=== PATIENT | female | born 1950 | race African-American/Black ===

== ENCOUNTER → 2016-11-12 | Outpatient (CLI) | payer OTHER ==
[2016-11-12 09:19] LABS: Basophils # (auto) 0.1 uL; Basophils % (auto) 0.5 % (0.0-2.0); Eosinophils # (auto) 0.1 uL; Eosinophils % (auto) 1.1 % (0.0-7.0); Hematocrit 41.5 % (36.0-46.0); Hemoglobin 13.6 g/dL (12.2-16.2); Lymphocytes # (auto) 3.5 uL; Lymphocytes % (auto) 30.3 % (10.0-50.0); Mean Corpuscular Hemoglobin 32.3 pg (28.0-32.0); Mean Corpuscular Hgb Conc. 32.6 g/dL (32.0-36.0); Mean Platelet Volume 7.3 fL (7.4-10.4); Monocytes # (auto) 0.6 uL; Monocytes % (auto) 5.2 % (0.0-12.0); Neutrophils # (auto) 7.2 uL; Neutrophils % (auto) 62.9 % (37.0-80.0); Platelet Count (auto) 447 10^3/uL (140-450); Red Cell Distribution Width 14.2 % (11.6-16.0); White Blood Cell 11.4 10^3/uL (4.4-10.8)
[2016-11-12 12:44] LABS: Albumin 3.7 g/dL (3.4-5.0); BUN/Creatinine Ratio 23.5; Bilirubin, Total 0.5 mg/dL (0.2-1.0); Calcium 9.4 mg/dL (8.5-10.1); Total Protein 7.9 g/dL (6.4-8.2)
== END | disposition home or self-care (01) ==
LOC: LAB 08:53
PROVIDERS: ATTEND Internal Medicine
DX: Z00.00 Encounter for general adult medical examination without abnormal findings (principal); I10 Essential (primary) hypertension; E78.2 Mixed hyperlipidemia; E55.9 Vitamin D deficiency, unspecified; E11.9 Type 2 diabetes mellitus without complications
CPT/HCPCS: 36415; 80053; 80061; 82306; 83036; 84443; 85025

== ENCOUNTER → 2017-05-07 | Outpatient (CLI) | payer OTHER | END | disposition home or self-care (01) | LOC: LAB 09:01 | DX: I10 Essential (primary) hypertension (principal); M06.9 Rheumatoid arthritis, unspecified; I70.0 Atherosclerosis of aorta; E78.00 Pure hypercholesterolemia, unspecified; D64.9 Anemia, unspecified; Z79.899 Other long term (current) drug therapy | CPT/HCPCS: 36415; 85652; 86141; 86200; 86431 ==

== ENCOUNTER → 2017-09-16 | Outpatient (CLI) | payer OTHER ==
[2017-09-16 08:39] LABS: Basophils # (auto) 0.1 uL; Basophils % (auto) 1.1 % (0.0-2.0); Eosinophils # (auto) 0.3 uL; Eosinophils % (auto) 2.4 % (0.0-7.0); Hematocrit 42.4 % (36.0-46.0); Hemoglobin 14.1 g/dL (12.2-16.2); Lymphocytes # (auto) 4.5 uL; Lymphocytes % (auto) 39.8 % (10.0-50.0); Mean Corpuscular Hemoglobin 32.1 pg (28.0-32.0); Mean Corpuscular Hgb Conc. 33.2 g/dL (32.0-36.0); Mean Corpuscular Volume 96.7 fL (80.0-100.0); Monocytes # (auto) 0.8 uL; Monocytes % (auto) 6.8 % (0.0-12.0); Neutrophils # (auto) 5.7 uL; Neutrophils % (auto) 49.9 % (37.0-80.0); Nucleated Red Blood Cells % 0.2 %; Platelet Count (auto) 372 10^3/uL (140-450); Red Blood Cells 4.38 10^6/uL (4.0-5.20); Red Cell Distribution Width 12.7 % (11.8-14.3); White Blood Cell 11.3 10^3/uL (4.4-10.8)
[2017-09-16 09:02] LABS: Albumin 3.7 g/dL (3.4-5.0); Bilirubin, Total 0.5 mg/dL (0.2-1.0); Calcium 8.9 mg/dL (8.5-10.1); Potassium 3.8 mmol/L (3.5-5.1); Total Protein 7.9 g/dL (6.4-8.2)
== END | disposition home or self-care (01) ==
LOC: LAB 08:20
PROVIDERS: ATTEND Physician Assistant
DX: E11.8 Type 2 diabetes mellitus with unspecified complications (principal); E78.5 Hyperlipidemia, unspecified; E03.9 Hypothyroidism, unspecified; Z86.19 Personal history of other infectious and parasitic diseases
CPT/HCPCS: 36415; 80053; 80061; 83036; 84443; 85025; 87522

== ENCOUNTER → 2017-12-30 | Outpatient (CLI) | payer OTHER | END | disposition home or self-care (01) | LOC: LAB 08:07 | PROVIDERS: ATTEND Physician Assistant | DX: Z12.11 Encounter for screening for malignant neoplasm of colon (principal); E78.5 Hyperlipidemia, unspecified; E03.9 Hypothyroidism, unspecified; E11.9 Type 2 diabetes mellitus without complications; I10 Essential (primary) hypertension; M06.9 Rheumatoid arthritis, unspecified; J44.9 Chronic obstructive pulmonary disease, unspecified | CPT/HCPCS: 82270 ==

== ENCOUNTER → 2019-08-21 | Outpatient (CLI) | payer OTHER ==
[2019-08-21 08:59] LABS: Urine WBC None Seen /hpf (0 - 5)
[2019-08-21 09:02] LABS: Hematocrit 38.7 % (36.0-46.0); Hemoglobin 13.2 g/dL (12.2-16.2); Mean Corpuscular Hgb Conc. 34.2 g/dL (32.0-36.0); Mean Corpuscular Volume 96.3 fL (80.0-100.0); Platelet Count (auto) 423 10^3/uL (140-450); Red Blood Cells 4.02 10^6/uL (4.0-5.20); Red Cell Distribution Width 12.7 % (11.8-14.3); White Blood Cell 11.5 10^3/uL (4.4-10.8)
[2019-08-21 09:05] LABS: Band Neutrophils % (manual) 0; Basophils % (manual) 0 (0.0-2.0); Blast Cells 0; Eosinophils % (manual) 0 (0-7); Metamyelocytes % 0; Myelocytes % 0; Promyelocytes % 0; Reactive Lymphocytes 0
[2019-08-21 09:08] LABS: Urine Bacteria NONE SEEN /hpf (None Seen); Urine Blood Negative /uL (Negative); Urine Specific Gravity 1.027 (1.001-1.035)
[2019-08-21 09:19] LABS: Lymphocytes % (manual) 48 (10.0-50.0); Monocytes % (manual) 3 (0-12)
[2019-08-21 09:31] LABS: Albumin 3.7 g/dL (3.4-5.0); Calcium 9.4 mg/dL (8.5-10.1); Potassium 4.3 mmol/L (3.5-5.1)
[2019-08-21 09:40] LABS: BUN/Creatinine Ratio 30.1; Bilirubin, Total 0.4 mg/dL (0.2-1.0)
== END | disposition home or self-care (01) ==
LOC: LAB 08:44
PROVIDERS: ATTEND Physician Assistant
DX: E11.22 Type 2 diabetes mellitus with diabetic chronic kidney disease (principal); I12.9 Hypertensive chronic kidney disease with stage 1 through stage 4 chronic kidney disease, or unspecified chronic kidney disease; N18.3 Chronic kidney disease, stage 3 (moderate); E03.9 Hypothyroidism, unspecified; J44.9 Chronic obstructive pulmonary disease, unspecified
CPT/HCPCS: 36415; 80053; 80061; 81001; 83036; 84443; 85007; 85027

== ENCOUNTER 2020-07-17 08:29 | Inpatient (IN) | payer OTHER, MEDICAID ==
[~2020-07-17] VITALS: Ht 160 cm; Wt 95.1 kg
[~2020-07-17 08:29] MED LIST: AMLO-496 PO; ATOR40TA52 PO; BENA40TA8 PO; CANA300T PO; HYDR25TA5 PO; IPRIH INH; LEVO125T7 PO; METF-929 PO; OMEP-260 PO
[2020-07-17 09:13] LABS: Basophils # (auto) 0.1 10 ^3/uL (0-0.2); Eosinophils # (auto) 0 10 ^3/uL (0-0.8); Eosinophils % (auto) 0.1 % (0.0-7.0); Monocytes % (auto) 6.5 % (0.0-12.0)
[2020-07-17 09:15] LABS: Basophils % (auto) 0.4 % (0.0-2.0); Hematocrit 28.7 % (36.0-46.0); Hemoglobin 8.9 g/dL (12.2-16.2); Lymphocytes # (auto) 1.6 10 ^3/uL (0.4-5.4); Lymphocytes % (auto) 9.9 % (10.0-50.0); Mean Corpuscular Hemoglobin 25.4 pg (28.0-32.0); Mean Corpuscular Hgb Conc. 30.9 g/dL (32.0-36.0); Neutrophils # (auto) 13.2 10 ^3/uL (1.6-8.6); Neutrophils % (auto) 83.1 % (37.0-80.0); Platelet Count (auto) 372 10^3/uL (140-450); Red Blood Cells 3.49 10^6/uL (4.0-5.20); White Blood Cell 15.9 10^3/uL (4.4-10.8)
[2020-07-17 09:19] LABS: Red Cell Distribution Width 23.3 % (11.8-14.3)
[2020-07-17 09:27] LABS: Alanine Aminotransferase 13 U/L (13-56); Albumin 2.1 g/dL (3.4-5.0); Aspartate Aminotransferase 14 U/L (15-37); Blood Urea Nitrogen 52 mg/dL (7-18); Calcium 8.7 mg/dL (8.5-10.1); Carbon Dioxide 27 mmol/L (21-32); Glucose 367 mg/dL (74-106); Magnesium 1.9 mg/dL (1.6-2.6)
[2020-07-17 10:55] LABS: Alkaline Phosphatase 100 U/L (45-117); Bilirubin, Total 0.4 mg/dL (0.2-1.0); GFR African American 43 mL/min; GFR Non-African American 36 mL/min
[2020-07-17 11:03] LABS: Anion Gap 8 (5-15); Chloride 100 mmol/L (98-107); Potassium 4.1 mmol/L (3.5-5.1); Sodium 135 mmol/L (136-145)
[2020-07-17] MEDS ORDERED: MORPHINE SULF INJ 2 MG/ML SYRINGE 1ML IV PRN (14:00)
[2020-07-17] MEDS ORDERED: NITROGLYCERIN 0.4 MG SL TAB SL PRN (14:00)
[2020-07-17] MEDS ORDERED: ONDANSETRON HCL 4 MG/2 ML VIAL IV PRN (14:00)
[2020-07-17] MEDS ORDERED: AMIO200T33 PO (14:56)
[2020-07-17] MEDS ORDERED: SUCR1TAB22 PO (14:56)
[2020-07-17] MEDS ORDERED: MET25T PO (14:56)
[2020-07-17] MEDS ORDERED: DIGO0.12 PO (14:56)
[2020-07-17] MEDS ORDERED: PANT40T PO (14:56)
[2020-07-17] MEDS: PIPERACILLIN-TAZOB 3.375GM 100 ML IV SCH (18:19)
[2020-07-17] MEDS: LINEZOLID 600MG/300ML 300 ML IV SCH (21:43)
[2020-07-17] MEDS: ATORVASTATIN 20 MG TAB PO SCH (21:44)
[2020-07-17] MEDS: methylPREDNISolone SOD SUCC 40 MG/ML VL IV SCH (21:44)
[2020-07-17] MEDS: DOCUSATE SOD 100 MG CAP PO SCH (21:49)
[2020-07-17] MEDS: BUDESONIDE (INHALATION) 0.5 MG/2 ML NEB NEB SCH (22:00)
[2020-07-18 04:00] VITALS: BP 147/81
[2020-07-18] MEDS: PIPERACILLIN-TAZOB 3.375GM 100 ML IV SCH ×3 (06:00→17:18)
[2020-07-18 08:00] VITALS: BP 143/85
[2020-07-18 08:50] LABS: Basophils # (auto) 0.1 10 ^3/uL (0-0.2); Eosinophils # (auto) 0 10 ^3/uL (0-0.8); Hemoglobin 9.9 g/dL (12.2-16.2); Monocytes # (auto) 0.2 10 ^3/uL (0-1.3); Monocytes % (auto) 1.6 % (0.0-12.0)
[2020-07-18 08:52] LABS: Hematocrit 30.9 % (36.0-46.0); Lymphocytes # (auto) 0.7 10 ^3/uL (0.4-5.4); Lymphocytes % (auto) 7.3 % (10.0-50.0); Mean Corpuscular Hemoglobin 25.9 pg (28.0-32.0); Mean Corpuscular Volume 80.8 fL (80.0-100.0); Neutrophils # (auto) 9.2 10 ^3/uL (1.6-8.6); Neutrophils % (auto) 90.1 % (37.0-80.0); Platelet Count (auto) 406 10^3/uL (140-450); Red Blood Cells 3.83 10^6/uL (4.0-5.20); Red Cell Distribution Width 24.1 % (11.8-14.3); White Blood Cell 10.2 10^3/uL (4.4-10.8)
[2020-07-18] MEDS ORDERED: cefTRIAXone 1GM/50ML D5W 50 ML IV SCH (09:00)
[2020-07-18 09:08] LABS: BUN/Creatinine Ratio 28.5; Calcium 8.6 mg/dL (8.5-10.1); Potassium 4.5 mmol/L (3.5-5.1)
[2020-07-18] MEDS: methylPREDNISolone SOD SUCC 40 MG/ML VL IV SCH (09:36)
[2020-07-18] MEDS: FAMOTIDINE 20 MG TAB PO SCH (09:36)
[2020-07-18] MEDS: DOCUSATE SOD 100 MG CAP PO SCH ×2 (09:37→22:23)
[2020-07-18] MEDS: amLODIPine BESYLATE 5 MG TAB PO SCH (09:37)
[2020-07-18] MEDS: LINEZOLID 600MG/300ML 300 ML IV SCH ×2 (09:38→22:23)
[2020-07-18] MEDS: AMIODARONE HCL 200 MG TAB PO SCH (09:38)
[2020-07-18] MEDS: ENOXAPARIN SOD 40 MG/0.4 ML SYRINGE SC SCH (09:38)
[2020-07-18] MEDS ORDERED: FUROSEMIDE 20 MG/2 ML VIAL IV SCH (10:00)
[2020-07-18] MEDS ORDERED: AZITHROMYCIN 500MG/ 250ML 250 ML IV SCH (10:00)
[2020-07-18] MEDS ORDERED: FUROSEMIDE 20 MG/2 ML VIAL IV ONE (10:15)
[2020-07-18] MEDS ORDERED: INSULIN LISPRO (HUMAN) 100 UNITS/ML ML SC ONE ×3 (10:15→16:15)
[2020-07-18] MEDS: BUDESONIDE (INHALATION) 0.5 MG/2 ML NEB NEB SCH ×2 (11:07→23:09)
[2020-07-18 12:00] VITALS: BP 131/80
[2020-07-18] MEDS: ALBUMIN 25% 100 ML IV SCH ×2 (13:23→13:45)
[2020-07-18 15:16] LABS: BUN/Creatinine Ratio 29.3; Calcium 8.6 mg/dL (8.5-10.1); Potassium 4.4 mmol/L (3.5-5.1)
[2020-07-18 16:00] VITALS: BP 121/80
[2020-07-18] MEDS ORDERED: SODIUM CHLORIDE 0.9% 500 ML IV ONE (16:15)
[2020-07-18] MEDS ORDERED: SODIUM CHLORIDE 0.9% 1,000 ML IV SCH (16:15)
[2020-07-18] MEDS: FUROSEMIDE 40 MG/4 ML VIAL IV SCH (17:17)
[2020-07-18] MEDS: ACCU-CHEK COMFORT CURVE STRIP VI SCH (22:23)
[2020-07-18] MEDS: ATORVASTATIN 20 MG TAB PO SCH (22:23)
[2020-07-18] MEDS: InsuLIN REG 1unit/0.01ml Soln (100units/ml) SC SCH (22:24)
[2020-07-18] MEDS: INSULIN LANTUS (GLARGINE) 1 /0.01ml (100units/ml) SC SCH (22:24)
[2020-07-19] VITALS: BP 126/71
[2020-07-19] MEDS: PIPERACILLIN-TAZOB 3.375GM 100 ML IV SCH ×4 (00:35→18:30)
[2020-07-19] MEDS: BUDESONIDE (INHALATION) 0.5 MG/2 ML NEB NEB SCH ×2 (06:11→18:54)
[2020-07-19] MEDS: FUROSEMIDE 40 MG/4 ML VIAL IV SCH ×2 (06:29→18:29)
[2020-07-19] MEDS: LEVOTHYROXINE SODIUM 25 MCG TAB PO SCH (06:30)
[2020-07-19] MEDS: LEVOTHYROXINE SODIUM 112 MCG TAB PO SCH (06:30)
[2020-07-19] MEDS: ACCU-CHEK COMFORT CURVE STRIP VI SCH ×4 (06:30→21:53)
[2020-07-19] MEDS: InsuLIN REG 1unit/0.01ml Soln (100units/ml) SC SCH ×4 (06:31→22:13)
[2020-07-19 07:48] LABS: Potassium 3.7 mmol/L (3.5-5.1)
[2020-07-19 07:53] LABS: BUN/Creatinine Ratio 32.4; Calcium 8.3 mg/dL (8.5-10.1); Magnesium 1.6 mg/dL (1.6-2.6)
[2020-07-19 08:00] VITALS: BP 136/95
[2020-07-19] MEDS: DOCUSATE SOD 100 MG CAP PO SCH ×2 (09:32→22:14)
[2020-07-19] MEDS: amLODIPine BESYLATE 5 MG TAB PO SCH (09:33)
[2020-07-19] MEDS: AMIODARONE HCL 200 MG TAB PO SCH (09:33)
[2020-07-19] MEDS: FAMOTIDINE 20 MG TAB PO SCH (09:34)
[2020-07-19] MEDS: ENOXAPARIN SOD 40 MG/0.4 ML SYRINGE SC SCH (09:34)
[2020-07-19] MEDS: LINEZOLID 600MG/300ML 300 ML IV SCH ×2 (09:35→22:14)
[2020-07-19] MEDS ORDERED: MAGNESIUM OXIDE 400 MG TAB PO ONE (10:00)
[2020-07-19 16:00] VITALS: BP 123/63
[2020-07-19] MEDS: INSULIN LANTUS (GLARGINE) 1 /0.01ml (100units/ml) SC SCH (22:13)
[2020-07-19] MEDS: HYDROcodone-ACET 5/325MG TAB PO PRN (22:14)
[2020-07-19] MEDS: ATORVASTATIN 20 MG TAB PO SCH (22:14)
[2020-07-20] MEDS: PIPERACILLIN-TAZOB 3.375GM 100 ML IV SCH ×4 (00:07→12:54)
[2020-07-20 05:51] VITALS: BP 133/72
[2020-07-20] MEDS: FUROSEMIDE 40 MG/4 ML VIAL IV SCH ×2 (06:50→18:30)
[2020-07-20] MEDS: LEVOTHYROXINE SODIUM 112 MCG TAB PO SCH (07:00)
[2020-07-20] MEDS: InsuLIN REG 1unit/0.01ml Soln (100units/ml) SC SCH ×4 (07:00→22:00)
[2020-07-20] MEDS: ACCU-CHEK COMFORT CURVE STRIP VI SCH ×4 (07:00→22:00)
[2020-07-20] MEDS: LEVOTHYROXINE SODIUM 25 MCG TAB PO SCH (07:00)
[2020-07-20 08:00] VITALS: BP 133/86
[2020-07-20] MEDS: DOCUSATE SOD 100 MG CAP PO SCH ×2 (10:32→22:00)
[2020-07-20] MEDS: amLODIPine BESYLATE 5 MG TAB PO SCH (10:32)
[2020-07-20] MEDS: AMIODARONE HCL 200 MG TAB PO SCH (10:32)
[2020-07-20] MEDS: LINEZOLID 600MG/300ML 300 ML IV SCH ×2 (10:33→22:00)
[2020-07-20] MEDS: ENOXAPARIN SOD 40 MG/0.4 ML SYRINGE SC SCH (10:33)
[2020-07-20] MEDS: FAMOTIDINE 20 MG TAB PO SCH (10:33)
[2020-07-20] MEDS: BUDESONIDE (INHALATION) 0.5 MG/2 ML NEB NEB SCH ×2 (10:50→22:00)
[2020-07-20 16:00] VITALS: BP 124/58
[2020-07-20 22:00] VITALS: BP 142/85
[2020-07-20] MEDS: ATORVASTATIN 20 MG TAB PO SCH (22:00)
[2020-07-20] MEDS: INSULIN LANTUS (GLARGINE) 1 /0.01ml (100units/ml) SC SCH (22:00)
[2020-07-21 05:00] VITALS: BP 134/67
[2020-07-21] MEDS: BUDESONIDE (INHALATION) 0.5 MG/2 ML NEB NEB SCH ×2 (06:40→21:49)
[2020-07-21] MEDS: PIPERACILLIN-TAZOB 3.375GM 100 ML IV SCH ×4 (06:49→18:02)
[2020-07-21] MEDS: LEVOTHYROXINE SODIUM 25 MCG TAB PO SCH (06:50)
[2020-07-21] MEDS: LEVOTHYROXINE SODIUM 112 MCG TAB PO SCH (06:50)
[2020-07-21] MEDS: FUROSEMIDE 40 MG/4 ML VIAL IV SCH ×2 (06:50→18:02)
[2020-07-21] MEDS: ACCU-CHEK COMFORT CURVE STRIP VI SCH ×4 (07:08→21:46)
[2020-07-21] MEDS: InsuLIN REG 1unit/0.01ml Soln (100units/ml) SC SCH ×4 (07:19→21:45)
[2020-07-21 08:00] VITALS: BP 133/79
[2020-07-21] MEDS: DOCUSATE SOD 100 MG CAP PO SCH ×2 (09:31→21:45)
[2020-07-21] MEDS: LINEZOLID 600MG/300ML 300 ML IV SCH (09:31)
[2020-07-21] MEDS: AMIODARONE HCL 200 MG TAB PO SCH (09:32)
[2020-07-21] MEDS: amLODIPine BESYLATE 5 MG TAB PO SCH (09:32)
[2020-07-21] MEDS: ENOXAPARIN SOD 40 MG/0.4 ML SYRINGE SC SCH (09:33)
[2020-07-21] MEDS: FAMOTIDINE 20 MG TAB PO SCH (09:33)
[2020-07-21 16:00] VITALS: BP 156/95
[2020-07-21] MEDS: ATORVASTATIN 20 MG TAB PO SCH (21:45)
[2020-07-21] MEDS: INSULIN LANTUS (GLARGINE) 1 /0.01ml (100units/ml) SC SCH (21:46)
[2020-07-21 22:00] VITALS: BP 141/72
[2020-07-22 05:00] VITALS: BP 147/71
[2020-07-22] MEDS: LEVOTHYROXINE SODIUM 25 MCG TAB PO SCH (05:50)
[2020-07-22] MEDS: ACCU-CHEK COMFORT CURVE STRIP VI SCH ×4 (05:50→21:51)
[2020-07-22] MEDS: InsuLIN REG 1unit/0.01ml Soln (100units/ml) SC SCH ×4 (05:50→21:52)
[2020-07-22] MEDS: LEVOTHYROXINE SODIUM 112 MCG TAB PO SCH (05:51)
[2020-07-22] MEDS: HYDROcodone-ACET 5/325MG TAB PO PRN (05:51)
[2020-07-22 09:00] VITALS: BP 120/72
[2020-07-22] MEDS: DOCUSATE SOD 100 MG CAP PO SCH ×2 (10:00→21:51)
[2020-07-22] MEDS: FAMOTIDINE 20 MG TAB PO SCH (10:26)
[2020-07-22] MEDS: amLODIPine BESYLATE 5 MG TAB PO SCH (10:26)
[2020-07-22] MEDS: AMIODARONE HCL 200 MG TAB PO SCH (10:26)
[2020-07-22] MEDS: ENOXAPARIN SOD 40 MG/0.4 ML SYRINGE SC SCH (10:27)
[2020-07-22 10:41] LABS: BUN/Creatinine Ratio 24.5; Calcium 8.5 mg/dL (8.5-10.1); Magnesium 1.7 mg/dL (1.6-2.6); Potassium 3.2 mmol/L (3.5-5.1)
[2020-07-22] MEDS ORDERED: POTASSIUM CHL 20 Meq TABLET PO ONE ×2 (11:45)
[2020-07-22 12:00] VITALS: BP 128/67
[2020-07-22] MEDS: BUDESONIDE (INHALATION) 0.5 MG/2 ML NEB NEB SCH ×2 (13:50→19:53)
[2020-07-22 17:00] VITALS: BP 141/74
[2020-07-22 18:21] VITALS: BP 139/76
[2020-07-22] MEDS: ATORVASTATIN 20 MG TAB PO SCH (21:51)
[2020-07-22] MEDS: INSULIN LANTUS (GLARGINE) 1 /0.01ml (100units/ml) SC SCH (21:52)
[2020-07-22 22:23] VITALS: BP 131/73
[2020-07-23] MEDS: HYDROcodone-ACET 5/325MG TAB PO PRN ×2 (01:02→21:50)
[2020-07-23 05:18] VITALS: BP 130/83
[2020-07-23] MEDS: LEVOTHYROXINE SODIUM 112 MCG TAB PO SCH (06:23)
[2020-07-23] MEDS: LEVOTHYROXINE SODIUM 25 MCG TAB PO SCH (06:24)
[2020-07-23] MEDS: ACCU-CHEK COMFORT CURVE STRIP VI SCH ×4 (06:24→21:50)
[2020-07-23] MEDS: InsuLIN REG 1unit/0.01ml Soln (100units/ml) SC SCH ×4 (06:24→22:00)
[2020-07-23 06:45] LABS: Urine Bacteria NONE SEEN /hpf (None Seen); Urine Blood 3+ /uL (Negative); Urine Budding Yeast OCCASIONAL /hpf (None Seen); Urine Specific Gravity 1.019 (1.001-1.035); Urine WBC 449 /hpf (0 - 5)
[2020-07-23 07:54] LABS: Eosinophils # (auto) 0.1 10 ^3/uL (0-0.8); Eosinophils % (auto) 0.4 % (0.0-7.0); Hemoglobin 8.1 g/dL (12.2-16.2); Monocytes # (auto) 0.7 10 ^3/uL (0-1.3); Nucleated Red Blood Cells % 0.1 %; White Blood Cell 14.6 10^3/uL (4.4-10.8)
[2020-07-23 08:00] VITALS: BP 136/71
[2020-07-23 08:01] LABS: Basophils # (auto) 0.2 10 ^3/uL (0-0.2); Basophils % (auto) 1.1 % (0.0-2.0); Hematocrit 25.8 % (36.0-46.0); Lymphocytes # (auto) 2.3 10 ^3/uL (0.4-5.4); Lymphocytes % (auto) 16.1 % (10.0-50.0); Mean Corpuscular Hemoglobin 25.4 pg (28.0-32.0); Mean Corpuscular Hgb Conc. 31.4 g/dL (32.0-36.0); Mean Corpuscular Volume 80.9 fL (80.0-100.0); Monocytes % (auto) 5.1 % (0.0-12.0); Neutrophils # (auto) 11.3 10 ^3/uL (1.6-8.6); Neutrophils % (auto) 77.3 % (37.0-80.0); Platelet Count (auto) 305 10^3/uL (140-450); Red Blood Cells 3.18 10^6/uL (4.0-5.20)
[2020-07-23] MEDS ORDERED: CEFTRIAXONE SODIUM 2 GM in D5W 5% 50 ML IV ONE (08:15)
[2020-07-23 08:37] LABS: Red Cell Distribution Width 23.8 % (11.8-14.3)
[2020-07-23] MEDS: AMIODARONE HCL 200 MG TAB PO SCH (08:58)
[2020-07-23] MEDS: DOCUSATE SOD 100 MG CAP PO SCH ×2 (08:58→21:50)
[2020-07-23] MEDS ORDERED: FUROSEMIDE 40 MG/4 ML VIAL IV ONE (09:00)
[2020-07-23] MEDS: FAMOTIDINE 20 MG TAB PO SCH (09:01)
[2020-07-23] MEDS: amLODIPine BESYLATE 5 MG TAB PO SCH (09:01)
[2020-07-23] MEDS: BUDESONIDE (INHALATION) 0.5 MG/2 ML NEB NEB SCH ×2 (13:07→19:29)
[2020-07-23 16:56] VITALS: BP 139/67
[2020-07-23 18:20] LABS: Hemoglobin 7.8 g/dL (12.2-16.2)
[2020-07-23 18:22] LABS: Hematocrit 24.5 % (36.0-46.0)
[2020-07-23] MEDS: ATORVASTATIN 20 MG TAB PO SCH (21:50)
[2020-07-23 22:00] VITALS: BP 138/83
[2020-07-23] MEDS: INSULIN LANTUS (GLARGINE) 1 /0.01ml (100units/ml) SC SCH (22:00)
[2020-07-24 05:00] VITALS: BP 141/74
[2020-07-24] MEDS: LEVOTHYROXINE SODIUM 112 MCG TAB PO SCH (05:34)
[2020-07-24] MEDS: ACCU-CHEK COMFORT CURVE STRIP VI SCH ×4 (05:35→22:00)
[2020-07-24] MEDS: InsuLIN REG 1unit/0.01ml Soln (100units/ml) SC SCH ×4 (05:35→22:00)
[2020-07-24] MEDS: LEVOTHYROXINE SODIUM 25 MCG TAB PO SCH (05:35)
[2020-07-24 06:15] LABS: Eosinophils # (auto) 0.1 10 ^3/uL (0-0.8); Hematocrit 21.9 % (36.0-46.0); Mean Corpuscular Volume 80.8 fL (80.0-100.0); Monocytes # (auto) 0.8 10 ^3/uL (0-1.3); Red Blood Cells 2.71 10^6/uL (4.0-5.20); White Blood Cell 12.3 10^3/uL (4.4-10.8)
[2020-07-24 06:17] LABS: Basophils # (auto) 0.1 10 ^3/uL (0-0.2); Basophils % (auto) 0.6 % (0.0-2.0); Eosinophils % (auto) 0.9 % (0.0-7.0); Lymphocytes # (auto) 1.8 10 ^3/uL (0.4-5.4); Lymphocytes % (auto) 14.7 % (10.0-50.0); Mean Corpuscular Hemoglobin 25.9 pg (28.0-32.0); Mean Corpuscular Hgb Conc. 32.1 g/dL (32.0-36.0); Monocytes % (auto) 6.1 % (0.0-12.0); Neutrophils # (auto) 9.6 10 ^3/uL (1.6-8.6); Neutrophils % (auto) 77.7 % (37.0-80.0); Platelet Count (auto) 278 10^3/uL (140-450)
[2020-07-24 06:29] LABS: Hemoglobin 7.1 g/dL (12.2-16.2); Red Cell Distribution Width 23.6 % (11.8-14.3)
[2020-07-24 06:36] LABS: Potassium 3.9 mmol/L (3.5-5.1)
[2020-07-24 06:50] LABS: BUN/Creatinine Ratio 23.1; Calcium 8.2 mg/dL (8.5-10.1)
[2020-07-24 08:00] VITALS: BP 136/80
[2020-07-24] MEDS: DOCUSATE SOD 100 MG CAP PO SCH ×2 (10:39→22:48)
[2020-07-24] MEDS: amLODIPine BESYLATE 5 MG TAB PO SCH (10:40)
[2020-07-24] MEDS: FAMOTIDINE 20 MG TAB PO SCH (10:40)
[2020-07-24] MEDS: AMIODARONE HCL 200 MG TAB PO SCH (10:40)
[2020-07-24] MEDS: BUDESONIDE (INHALATION) 0.5 MG/2 ML NEB NEB SCH ×2 (11:08→19:54)
[2020-07-24 22:00] VITALS: BP 130/73
[2020-07-24] MEDS: INSULIN LANTUS (GLARGINE) 1 /0.01ml (100units/ml) SC SCH (22:00)
[2020-07-24] MEDS: ATORVASTATIN 20 MG TAB PO SCH (22:48)
[2020-07-25] MEDS ORDERED: dilTIAZem 25 MG/5 ML VIAL IV ONE (00:45)
[2020-07-25 05:00] VITALS: BP 159/79
[2020-07-25 06:05] LABS: Eosinophils # (auto) 0.1 10 ^3/uL (0-0.8); Hemoglobin 7.2 g/dL (12.2-16.2); Monocytes # (auto) 0.9 10 ^3/uL (0-1.3); White Blood Cell 10.6 10^3/uL (4.4-10.8)
[2020-07-25 06:09] LABS: Basophils # (auto) 0.1 10 ^3/uL (0-0.2); Basophils % (auto) 0.7 % (0.0-2.0); Eosinophils % (auto) 0.6 % (0.0-7.0); Lymphocytes # (auto) 1.5 10 ^3/uL (0.4-5.4); Lymphocytes % (auto) 13.9 % (10.0-50.0); Mean Corpuscular Hemoglobin 26.1 pg (28.0-32.0); Mean Corpuscular Hgb Conc. 32.7 g/dL (32.0-36.0); Mean Corpuscular Volume 79.9 fL (80.0-100.0); Monocytes % (auto) 8.1 % (0.0-12.0); Neutrophils # (auto) 8.1 10 ^3/uL (1.6-8.6); Neutrophils % (auto) 76.7 % (37.0-80.0); Platelet Count (auto) 303 10^3/uL (140-450); Red Blood Cells 2.76 10^6/uL (4.0-5.20)
[2020-07-25 06:24] LABS: INR 1.24 (0.9-1.15); Partial Thromboplastin Time 31.3 sec (23.0-31.2)
[2020-07-25] MEDS: InsuLIN REG 1unit/0.01ml Soln (100units/ml) SC SCH ×4 (06:31→21:57)
[2020-07-25] MEDS: LEVOTHYROXINE SODIUM 25 MCG TAB PO SCH (06:31)
[2020-07-25 06:35] LABS: Potassium 3.8 mmol/L (3.5-5.1)
[2020-07-25] MEDS: LEVOTHYROXINE SODIUM 112 MCG TAB PO SCH (06:40)
[2020-07-25] MEDS: ACCU-CHEK COMFORT CURVE STRIP VI SCH ×4 (06:40→21:57)
[2020-07-25] MEDS: BUDESONIDE (INHALATION) 0.5 MG/2 ML NEB NEB SCH ×2 (06:51→18:27)
[2020-07-25 07:04] LABS: Red Cell Distribution Width 23.8 % (11.8-14.3)
[2020-07-25 07:13] LABS: Albumin 1.9 g/dL (3.4-5.0); BUN/Creatinine Ratio 20.4; Bilirubin, Total 0.5 mg/dL (0.2-1.0); Calcium 8.2 mg/dL (8.5-10.1); Magnesium 1.9 mg/dL (1.6-2.6); Total Protein 6.8 g/dL (6.4-8.2)
[2020-07-25 08:00] VITALS: BP_SYST 114; BP_SYST 162; BP_DIAS 65; BP_DIAS 82
[2020-07-25] MEDS: DOCUSATE SOD 100 MG CAP PO SCH ×2 (10:22→21:55)
[2020-07-25] MEDS: amLODIPine BESYLATE 5 MG TAB PO SCH (10:23)
[2020-07-25] MEDS: HYDROcodone-ACET 5/325MG TAB PO PRN (10:23)
[2020-07-25] MEDS: AMIODARONE HCL 200 MG TAB PO SCH (10:23)
[2020-07-25] MEDS: FAMOTIDINE 20 MG TAB PO SCH (10:23)
[2020-07-25] MEDS ORDERED: FUROSEMIDE 40 MG/4 ML VIAL IV ONE (11:15)
[2020-07-25] MEDS ORDERED: AZITHROMYCIN 250 MG TAB PO ONE (12:45)
[2020-07-25 14:54] VITALS: BP 120/66
[2020-07-25 15:11] VITALS: BP 118/58
[2020-07-25] MEDS: FUROSEMIDE 40 MG/4 ML VIAL IV SCH (18:00)
[2020-07-25 18:48] VITALS: BP 111/73
[2020-07-25] MEDS: ATORVASTATIN 20 MG TAB PO SCH (21:55)
[2020-07-25] MEDS: INSULIN LANTUS (GLARGINE) 1 /0.01ml (100units/ml) SC SCH (21:57)
[2020-07-25 23:38] VITALS: BP 148/50
[2020-07-26] MEDS: HYDROcodone-ACET 5/325MG TAB PO PRN (01:37)
[2020-07-26 06:07] VITALS: BP 131/70
[2020-07-26] MEDS: FUROSEMIDE 40 MG/4 ML VIAL IV SCH ×2 (06:30→17:29)
[2020-07-26] MEDS: InsuLIN REG 1unit/0.01ml Soln (100units/ml) SC SCH ×4 (06:30→22:00)
[2020-07-26] MEDS: LEVOTHYROXINE SODIUM 25 MCG TAB PO SCH (06:49)
[2020-07-26] MEDS: LEVOTHYROXINE SODIUM 112 MCG TAB PO SCH (06:49)
[2020-07-26] MEDS: ACCU-CHEK COMFORT CURVE STRIP VI SCH ×4 (06:51→23:06)
[2020-07-26 06:57] LABS: Hemoglobin 7.4 g/dL (12.2-16.2)
[2020-07-26 06:59] LABS: Hematocrit 21.6 % (36.0-46.0)
[2020-07-26 08:00] VITALS: BP 118/78
[2020-07-26] MEDS: BUDESONIDE (INHALATION) 0.5 MG/2 ML NEB NEB SCH ×2 (10:00→19:02)
[2020-07-26] MEDS: DOCUSATE SOD 100 MG CAP PO SCH ×2 (10:02→23:04)
[2020-07-26] MEDS: AMIODARONE HCL 200 MG TAB PO SCH (10:02)
[2020-07-26] MEDS: FAMOTIDINE 20 MG TAB PO SCH (10:02)
[2020-07-26] MEDS: amLODIPine BESYLATE 5 MG TAB PO SCH (10:03)
[2020-07-26] MEDS: AZITHROMYCIN 250 MG TAB PO SCH (10:03)
[2020-07-26 16:00] VITALS: BP 121/64
[2020-07-26] MEDS: ATORVASTATIN 20 MG TAB PO SCH (23:04)
[2020-07-26] MEDS: INSULIN LANTUS (GLARGINE) 1 /0.01ml (100units/ml) SC SCH (23:05)
[2020-07-27] VITALS: BP 103/73
[2020-07-27] MEDS: FUROSEMIDE 40 MG/4 ML VIAL IV SCH ×3 (06:00→18:00)
[2020-07-27] MEDS: BUDESONIDE (INHALATION) 0.5 MG/2 ML NEB NEB SCH ×2 (06:30→22:00)
[2020-07-27] MEDS: LEVOTHYROXINE SODIUM 112 MCG TAB PO SCH ×2 (06:43→06:52)
[2020-07-27] MEDS: LEVOTHYROXINE SODIUM 25 MCG TAB PO SCH ×2 (06:44→06:52)
[2020-07-27] MEDS: ACCU-CHEK COMFORT CURVE STRIP VI SCH ×4 (06:52→22:31)
[2020-07-27] MEDS: InsuLIN REG 1unit/0.01ml Soln (100units/ml) SC SCH ×4 (06:53→22:00)
[2020-07-27 08:00] VITALS: BP 119/77
[2020-07-27 08:26] LABS: Basophils # (auto) 0 10 ^3/uL (0-0.2); Eosinophils # (auto) 0 10 ^3/uL (0-0.8); Hemoglobin 7.4 g/dL (12.2-16.2); Lymphocytes # (auto) 0.9 10 ^3/uL (0.4-5.4); Monocytes # (auto) 0.9 10 ^3/uL (0-1.3)
[2020-07-27 08:28] LABS: Basophils % (auto) 0.4 % (0.0-2.0); Eosinophils % (auto) 0.2 % (0.0-7.0); Hematocrit 22.5 % (36.0-46.0); Lymphocytes % (auto) 12.4 % (10.0-50.0); Mean Corpuscular Hemoglobin 26.6 pg (28.0-32.0); Mean Corpuscular Hgb Conc. 32.7 g/dL (32.0-36.0); Mean Corpuscular Volume 81.5 fL (80.0-100.0); Monocytes % (auto) 11.7 % (0.0-12.0); Neutrophils # (auto) 5.7 10 ^3/uL (1.6-8.6); Neutrophils % (auto) 75.3 % (37.0-80.0); Nucleated Red Blood Cells % 0.1 %; Platelet Count (auto) 472 10^3/uL (140-450); Red Blood Cells 2.76 10^6/uL (4.0-5.20); White Blood Cell 7.5 10^3/uL (4.4-10.8)
[2020-07-27 09:08] LABS: Calcium 8.4 mg/dL (8.5-10.1); Potassium 3.7 mmol/L (3.5-5.1)
[2020-07-27 09:11] LABS: BUN/Creatinine Ratio 21.7
[2020-07-27] MEDS: AMIODARONE HCL 200 MG TAB PO SCH (10:03)
[2020-07-27] MEDS: DOCUSATE SOD 100 MG CAP PO SCH ×2 (10:03→22:00)
[2020-07-27] MEDS: AZITHROMYCIN 250 MG TAB PO SCH (10:05)
[2020-07-27] MEDS: amLODIPine BESYLATE 5 MG TAB PO SCH (10:05)
[2020-07-27] MEDS: FAMOTIDINE 20 MG TAB PO SCH (10:05)
[2020-07-27 16:00] VITALS: BP 119/81
[2020-07-27 21:56] VITALS: BP 116/70
[2020-07-27] MEDS: INSULIN LANTUS (GLARGINE) 1 /0.01ml (100units/ml) SC SCH (22:00)
[2020-07-27] MEDS: HYDROcodone-ACET 5/325MG TAB PO PRN ×2 (22:45→22:48)
[2020-07-27] MEDS: ACETAMINOPHEN 500 MG TAB PO PRN (22:46)
[2020-07-27] MEDS: ATORVASTATIN 20 MG TAB PO SCH (22:47)
[2020-07-28 05:30] VITALS: BP 133/58
[2020-07-28] MEDS: FUROSEMIDE 40 MG/4 ML VIAL IV SCH ×2 (06:00→18:00)
[2020-07-28] MEDS: LEVOTHYROXINE SODIUM 112 MCG TAB PO SCH (06:34)
[2020-07-28] MEDS: LEVOTHYROXINE SODIUM 25 MCG TAB PO SCH (06:35)
[2020-07-28] MEDS: InsuLIN REG 1unit/0.01ml Soln (100units/ml) SC SCH ×4 (06:43→22:00)
[2020-07-28] MEDS: ACCU-CHEK COMFORT CURVE STRIP VI SCH ×4 (06:44→22:00)
[2020-07-28 07:22] LABS: Eosinophils # (auto) 0 10 ^3/uL (0-0.8); Hematocrit 22.2 % (36.0-46.0); Lymphocytes % (auto) 20.5 % (10.0-50.0); Monocytes # (auto) 0.9 10 ^3/uL (0-1.3)
[2020-07-28 07:25] LABS: Basophils # (auto) 0.1 10 ^3/uL (0-0.2); Basophils % (auto) 0.8 % (0.0-2.0); Eosinophils % (auto) 0.5 % (0.0-7.0); Hemoglobin 7.2 g/dL (12.2-16.2); Lymphocytes # (auto) 1.4 10 ^3/uL (0.4-5.4); Mean Corpuscular Hemoglobin 26.7 pg (28.0-32.0); Mean Corpuscular Hgb Conc. 32.5 g/dL (32.0-36.0); Neutrophils # (auto) 4.4 10 ^3/uL (1.6-8.6); Neutrophils % (auto) 65.2 % (37.0-80.0); Platelet Count (auto) 522 10^3/uL (140-450); Red Blood Cells 2.71 10^6/uL (4.0-5.20); White Blood Cell 6.7 10^3/uL (4.4-10.8)
[2020-07-28 07:29] LABS: Red Cell Distribution Width 23.8 % (11.8-14.3)
[2020-07-28 07:34] LABS: BUN/Creatinine Ratio 23.3; Potassium 4.1 mmol/L (3.5-5.1)
[2020-07-28 08:00] VITALS: BP_SYST 100; BP_SYST 152; BP_DIAS 55; BP_DIAS 92
[2020-07-28] MEDS: DOCUSATE SOD 100 MG CAP PO SCH ×2 (08:10→22:00)
[2020-07-28] MEDS: AZITHROMYCIN 250 MG TAB PO SCH (09:43)
[2020-07-28] MEDS: FAMOTIDINE 20 MG TAB PO SCH (09:43)
[2020-07-28] MEDS: AMIODARONE HCL 200 MG TAB PO SCH (09:43)
[2020-07-28] MEDS: amLODIPine BESYLATE 5 MG TAB PO SCH (09:44)
[2020-07-28] MEDS: BUDESONIDE (INHALATION) 0.5 MG/2 ML NEB NEB SCH ×2 (10:06→22:26)
[2020-07-28 16:00] VITALS: BP_SYST 131; BP_SYST 133; BP_DIAS 80; BP_DIAS 90
[2020-07-28 22:00] VITALS: BP 148/81
[2020-07-28] MEDS: ATORVASTATIN 20 MG TAB PO SCH (22:00)
[2020-07-28] MEDS: INSULIN LANTUS (GLARGINE) 1 /0.01ml (100units/ml) SC SCH (22:00)
[2020-07-28] MEDS: ACETAMINOPHEN 500 MG TAB PO PRN (22:46)
[2020-07-29 05:00] VITALS: BP 120/65
[2020-07-29] MEDS: FUROSEMIDE 40 MG/4 ML VIAL IV SCH (06:00)
[2020-07-29] MEDS: ACCU-CHEK COMFORT CURVE STRIP VI SCH ×4 (06:26→22:14)
[2020-07-29] MEDS: LEVOTHYROXINE SODIUM 25 MCG TAB PO SCH (06:26)
[2020-07-29] MEDS: InsuLIN REG 1unit/0.01ml Soln (100units/ml) SC SCH ×4 (06:26→22:05)
[2020-07-29] MEDS: LEVOTHYROXINE SODIUM 112 MCG TAB PO SCH (06:26)
[2020-07-29 08:00] VITALS: BP 128/60
[2020-07-29 08:27] LABS: Basophils # (auto) 0 10 ^3/uL (0-0.2); Basophils % (auto) 0.5 % (0.0-2.0); Eosinophils # (auto) 0 10 ^3/uL (0-0.8); Eosinophils % (auto) 0.1 % (0.0-7.0); Mean Corpuscular Volume 82.4 fL (80.0-100.0); Monocytes # (auto) 0.8 10 ^3/uL (0-1.3); Nucleated Red Blood Cells % 0.1 %; Red Blood Cells 2.62 10^6/uL (4.0-5.20)
[2020-07-29 08:29] LABS: Hematocrit 21.6 % (36.0-46.0); Lymphocytes # (auto) 1.1 10 ^3/uL (0.4-5.4); Lymphocytes % (auto) 16.8 % (10.0-50.0); Mean Corpuscular Hemoglobin 26.5 pg (28.0-32.0); Mean Corpuscular Hgb Conc. 32.2 g/dL (32.0-36.0); Monocytes % (auto) 12.6 % (0.0-12.0); Neutrophils # (auto) 4.5 10 ^3/uL (1.6-8.6); Platelet Count (auto) 586 10^3/uL (140-450); White Blood Cell 6.4 10^3/uL (4.4-10.8)
[2020-07-29 08:46] LABS: Potassium 4.1 mmol/L (3.5-5.1)
[2020-07-29 08:48] LABS: BUN/Creatinine Ratio 23.4; Calcium 8.2 mg/dL (8.5-10.1)
[2020-07-29 09:03] LABS: Hemoglobin 6.9 g/dL (12.2-16.2); Red Cell Distribution Width 23.6 % (11.8-14.3)
[2020-07-29] MEDS: BUDESONIDE (INHALATION) 0.5 MG/2 ML NEB NEB SCH ×2 (11:15→22:00)
[2020-07-29] MEDS: DOCUSATE SOD 100 MG CAP PO SCH ×2 (12:00→22:00)
[2020-07-29] MEDS: AMIODARONE HCL 200 MG TAB PO SCH (12:00)
[2020-07-29] MEDS: FAMOTIDINE 20 MG TAB PO SCH (12:01)
[2020-07-29] MEDS: amLODIPine BESYLATE 5 MG TAB PO SCH (12:01)
[2020-07-29] MEDS: AZITHROMYCIN 250 MG TAB PO SCH (12:01)
[2020-07-29] MEDS ORDERED: PANTOPRAZOLE 40 MG TAB PO ONE (13:15)
[2020-07-29 16:00] VITALS: BP 127/62
[2020-07-29 20:00] VITALS: BP 124/62
[2020-07-29] MEDS: ATORVASTATIN 20 MG TAB PO SCH (21:57)
[2020-07-29] MEDS: PANTOPRAZOLE 40 MG TAB PO SCH (21:58)
[2020-07-29 22:00] VITALS: BP 124/62
[2020-07-29] MEDS: INSULIN LANTUS (GLARGINE) 1 /0.01ml (100units/ml) SC SCH (22:06)
[2020-07-29] MEDS: HYDROcodone-ACET 5/325MG TAB PO PRN (23:59)
[2020-07-30] MEDS: ACETAMINOPHEN 500 MG TAB PO PRN (00:55)
[2020-07-30 05:00] VITALS: BP 115/66
[2020-07-30] MEDS: ACCU-CHEK COMFORT CURVE STRIP VI SCH ×4 (06:39→22:00)
[2020-07-30] MEDS: LEVOTHYROXINE SODIUM 112 MCG TAB PO SCH (06:44)
[2020-07-30] MEDS: InsuLIN REG 1unit/0.01ml Soln (100units/ml) SC SCH ×4 (06:44→22:00)
[2020-07-30] MEDS: LEVOTHYROXINE SODIUM 25 MCG TAB PO SCH (06:45)
[2020-07-30 08:00] VITALS: BP 112/60
[2020-07-30] MEDS: DOCUSATE SOD 100 MG CAP PO SCH ×2 (09:54→22:29)
[2020-07-30] MEDS: AMIODARONE HCL 200 MG TAB PO SCH (09:54)
[2020-07-30] MEDS: amLODIPine BESYLATE 5 MG TAB PO SCH (10:02)
[2020-07-30] MEDS: PANTOPRAZOLE 40 MG TAB PO SCH ×2 (10:03→22:25)
[2020-07-30] MEDS: AZITHROMYCIN 250 MG TAB PO SCH (10:03)
[2020-07-30] MEDS: FAMOTIDINE 20 MG TAB PO SCH (10:03)
[2020-07-30] MEDS: BUDESONIDE (INHALATION) 0.5 MG/2 ML NEB NEB SCH ×2 (10:12→19:13)
[2020-07-30 11:04] LABS: Calcium 8.4 mg/dL (8.5-10.1); Potassium 4.1 mmol/L (3.5-5.1)
[2020-07-30 11:07] LABS: BUN/Creatinine Ratio 24.9
[2020-07-30 11:17] LABS: Basophils # (auto) 0 10 ^3/uL (0-0.2); Eosinophils # (auto) 0 10 ^3/uL (0-0.8); Eosinophils % (auto) 0.2 % (0.0-7.0); Monocytes # (auto) 0.7 10 ^3/uL (0-1.3); Nucleated Red Blood Cells % 0.1 %
[2020-07-30 11:19] LABS: Basophils % (auto) 0.7 % (0.0-2.0); Hematocrit 22.9 % (36.0-46.0); Hemoglobin 7.5 g/dL (12.2-16.2); Lymphocytes # (auto) 1.2 10 ^3/uL (0.4-5.4); Lymphocytes % (auto) 18.7 % (10.0-50.0); Mean Corpuscular Hemoglobin 26.8 pg (28.0-32.0); Mean Corpuscular Hgb Conc. 32.5 g/dL (32.0-36.0); Mean Corpuscular Volume 82.5 fL (80.0-100.0); Monocytes % (auto) 11.1 % (0.0-12.0); Neutrophils # (auto) 4.4 10 ^3/uL (1.6-8.6); Neutrophils % (auto) 69.3 % (37.0-80.0); Platelet Count (auto) 676 10^3/uL (140-450); Red Blood Cells 2.78 10^6/uL (4.0-5.20); Red Cell Distribution Width 23.8 % (11.8-14.3); White Blood Cell 6.4 10^3/uL (4.4-10.8)
[2020-07-30] MEDS ORDERED: predniSONE 20 MG TAB PO ONE (13:15)
[2020-07-30] MEDS ORDERED: PIPERACILLIN-TAZOB 2.25GM 50 ML IV ONE (15:45)
[2020-07-30 16:00] VITALS: BP 109/66
[2020-07-30 20:00] VITALS: BP 116/60
[2020-07-30 22:00] VITALS: BP 116/60
[2020-07-30] MEDS: INSULIN LANTUS (GLARGINE) 1 /0.01ml (100units/ml) SC SCH (22:00)
[2020-07-30] MEDS: PIPERACILLIN-TAZOB 3.375GM 100 ML IV SCH (22:29)
[2020-07-30] MEDS: ATORVASTATIN 20 MG TAB PO SCH (22:30)
[2020-07-31] VITALS (8 sets, daily range): BP systolic 102–137; BP diastolic 55–83
[2020-07-31] MEDS: MORPHINE SULF INJ 2 MG/ML SYRINGE 1ML IV PRN ×3 (00:55→23:56)
[2020-07-31] MEDS: PIPERACILLIN-TAZOB 3.375GM 100 ML IV SCH (06:13)
[2020-07-31] MEDS ORDERED: LORazepam 0.5 MG TAB PO PRN (06:30)
[2020-07-31] MEDS: LEVOTHYROXINE SODIUM 112 MCG TAB PO SCH (06:40)
[2020-07-31] MEDS: LEVOTHYROXINE SODIUM 25 MCG TAB PO SCH (06:41)
[2020-07-31] MEDS: ACCU-CHEK COMFORT CURVE STRIP VI SCH ×4 (06:41→21:43)
[2020-07-31] MEDS: InsuLIN REG 1unit/0.01ml Soln (100units/ml) SC SCH ×4 (06:49→22:10)
[2020-07-31] MEDS: BUDESONIDE (INHALATION) 0.5 MG/2 ML NEB NEB SCH ×2 (07:10→20:52)
[2020-07-31 07:39] LABS: Basophils # (auto) 0 10 ^3/uL (0-0.2); Eosinophils # (auto) 0 10 ^3/uL (0-0.8); Monocytes # (auto) 0.6 10 ^3/uL (0-1.3)
[2020-07-31 07:41] LABS: Basophils % (auto) 0.4 % (0.0-2.0); Hematocrit 19.8 % (36.0-46.0); Lymphocytes # (auto) 1.1 10 ^3/uL (0.4-5.4); Lymphocytes % (auto) 20.7 % (10.0-50.0); Mean Corpuscular Hemoglobin 26.4 pg (28.0-32.0); Mean Corpuscular Hgb Conc. 32.4 g/dL (32.0-36.0); Mean Corpuscular Volume 81.4 fL (80.0-100.0); Neutrophils # (auto) 3.6 10 ^3/uL (1.6-8.6); Neutrophils % (auto) 67.9 % (37.0-80.0); Platelet Count (auto) 627 10^3/uL (140-450); Red Blood Cells 2.44 10^6/uL (4.0-5.20); Red Cell Distribution Width 24.2 % (11.8-14.3); White Blood Cell 5.3 10^3/uL (4.4-10.8)
[2020-07-31 07:50] LABS: Calcium 8.2 mg/dL (8.5-10.1); Potassium 4.4 mmol/L (3.5-5.1)
[2020-07-31 07:52] LABS: BUN/Creatinine Ratio 27.1
[2020-07-31 08:02] LABS: Hemoglobin 6.4 g/dL (12.2-16.2)
[2020-07-31] MEDS ORDERED: CEFEPIME 2 GM in D5W 5% 50 ML IV SCH (10:00)
[2020-07-31] MEDS: AMIODARONE HCL 200 MG TAB PO SCH (10:38)
[2020-07-31] MEDS: DOCUSATE SOD 100 MG CAP PO SCH ×2 (10:38→21:41)
[2020-07-31] MEDS: amLODIPine BESYLATE 5 MG TAB PO SCH (10:41)
[2020-07-31] MEDS: predniSONE 20 MG TAB PO SCH (10:43)
[2020-07-31] MEDS: FAMOTIDINE 20 MG TAB PO SCH (10:45)
[2020-07-31] MEDS: PANTOPRAZOLE 40 MG TAB PO SCH ×2 (10:45→21:42)
[2020-07-31] MEDS: LINEZOLID 600MG/300ML 300 ML IV SCH ×2 (12:22→21:40)
[2020-07-31] MEDS: ATORVASTATIN 20 MG TAB PO SCH (21:42)
[2020-07-31] MEDS ORDERED: CEFEPIME 1 GM in NS 0.9% 50 ML IV SCH (22:00)
[2020-07-31] MEDS: INSULIN LANTUS (GLARGINE) 1 /0.01ml (100units/ml) SC SCH (22:09)
[2020-08-01] VITALS (34 sets, daily range): BP systolic 92–129; BP diastolic 50–80
[2020-08-01] MEDS: LEVOTHYROXINE SODIUM 25 MCG TAB PO SCH (06:26)
[2020-08-01] MEDS: LEVOTHYROXINE SODIUM 112 MCG TAB PO SCH (06:26)
[2020-08-01] MEDS: InsuLIN REG 1unit/0.01ml Soln (100units/ml) SC SCH ×3 (06:27→17:00)
[2020-08-01] MEDS: ACCU-CHEK COMFORT CURVE STRIP VI SCH ×3 (06:27→17:15)
[2020-08-01 06:36] LABS: Basophils # (auto) 0 10 ^3/uL (0-0.2); Eosinophils # (auto) 0 10 ^3/uL (0-0.8); Hemoglobin 8.4 g/dL (12.2-16.2); Lymphocytes # (auto) 1.3 10 ^3/uL (0.4-5.4); Mean Corpuscular Hemoglobin 26.9 pg (28.0-32.0); Neutrophils # (auto) 4.4 10 ^3/uL (1.6-8.6); Nucleated Red Blood Cells % 0.3 %; Red Blood Cells 3.11 10^6/uL (4.0-5.20)
[2020-08-01 06:39] LABS: Basophils % (auto) 0.5 % (0.0-2.0); Hematocrit 27.2 % (36.0-46.0); Lymphocytes % (auto) 20.7 % (10.0-50.0); Mean Corpuscular Hgb Conc. 30.8 g/dL (32.0-36.0); Mean Corpuscular Volume 87.3 fL (80.0-100.0); Monocytes # (auto) 0.7 10 ^3/uL (0-1.3); Monocytes % (auto) 11.1 % (0.0-12.0); Neutrophils % (auto) 67.7 % (37.0-80.0); Platelet Count (auto) 604 10^3/uL (140-450); Red Cell Distribution Width 23.1 % (11.8-14.3); White Blood Cell 6.5 10^3/uL (4.4-10.8)
[2020-08-01 06:48] LABS: Potassium 4.7 mmol/L (3.5-5.1)
[2020-08-01 07:02] LABS: BUN/Creatinine Ratio 28.3; Calcium 8.2 mg/dL (8.5-10.1)
[2020-08-01] MEDS: FAMOTIDINE 20 MG TAB PO SCH ×2 (10:00→22:00)
[2020-08-01] MEDS: DOCUSATE SOD 100 MG CAP PO SCH ×2 (10:00→22:00)
[2020-08-01] MEDS: BUDESONIDE (INHALATION) 0.5 MG/2 ML NEB NEB SCH ×2 (10:00→18:11)
[2020-08-01] MEDS: amLODIPine BESYLATE 5 MG TAB PO SCH (10:00)
[2020-08-01] MEDS: AMIODARONE HCL 200 MG TAB PO SCH (10:00)
[2020-08-01] MEDS: PANTOPRAZOLE 40 MG TAB PO SCH ×2 (10:00→22:00)
[2020-08-01] MEDS: predniSONE 20 MG TAB PO SCH (10:00)
[2020-08-01] MEDS ORDERED: ETOMIDATE (2MG/ML) 20ML VIAL IV ONE (10:22)
[2020-08-01] MEDS ORDERED: ROCURONIUM 10MG/ML 10ML VIAL IV ONE (10:22)
[2020-08-01] MEDS ORDERED: SUCCINYLCHOLINE CHLORIDE 20 MG/ML 10ML VIAL IV ONE (10:22)
[2020-08-01] MEDS ORDERED: fentaNYL Drip 2500mCg/250mlNS 250 ML IV ONE (10:45)
[2020-08-01] MEDS ORDERED: MIDAZOLAM DRIP 50 mg/50mL 50 ML IV ONE ×2 (10:45→11:52)
[2020-08-01] MEDS ORDERED: MIDAZOLAM HCL 5 MG/ML-1ML VIAL ONE (10:46)
[2020-08-01] MEDS: LINEZOLID 600MG/300ML 300 ML IV SCH ×2 (13:04→22:00)
[2020-08-01] MEDS: fentaNYL Drip 2500mCg/250mlNS 250 ML IV SCH (13:45)
[2020-08-01] MEDS: PIPERACILLIN-TAZOB 3.375GM 100 ML IV SCH ×2 (15:19→17:25)
[2020-08-01] MEDS: MIDAZOLAM DRIP 50 mg/50mL 50 ML IV SCH ×2 (15:20→22:00)
[2020-08-01 15:36] LABS: INR 1.2 (0.9-1.15); Partial Thromboplastin Time 33.5 sec (23.0-31.2)
[2020-08-01] MEDS ORDERED: DexAMETHasone SOD PHOS 10MG/1ML VIAL INJ IV ONE (16:00)
[2020-08-01] MEDS: ERGOCALCIFEROL 50,000 UNIT(1.25MG) CAP PO SCH (20:00)
[2020-08-01] MEDS: ASCORBIC ACID 500 MG TAB PO SCH (22:00)
[2020-08-01] MEDS: INSULIN LANTUS (GLARGINE) 1 /0.01ml (100units/ml) SC SCH (22:00)
[2020-08-01] MEDS: ATORVASTATIN 20 MG TAB PO SCH (22:00)
[2020-08-02] VITALS (94 sets, daily range): BP systolic 88–126; BP diastolic 52–71
[2020-08-02] MEDS: PIPERACILLIN-TAZOB 3.375GM 100 ML IV SCH ×4 (00:30→18:01)
[2020-08-02] MEDS: InsuLIN REG 1unit/0.01ml Soln (100units/ml) SC SCH ×4 (06:00→18:02)
[2020-08-02] MEDS: ACCU-CHEK COMFORT CURVE STRIP VI SCH ×5 (06:00→23:30)
[2020-08-02] MEDS: LEVOTHYROXINE SODIUM 112 MCG TAB PO SCH (06:36)
[2020-08-02] MEDS: LEVOTHYROXINE SODIUM 25 MCG TAB PO SCH (06:36)
[2020-08-02] MEDS: BUDESONIDE (INHALATION) 0.5 MG/2 ML NEB NEB SCH ×2 (06:45→19:59)
[2020-08-02] MEDS: DOCUSATE SOD 100 MG CAP PO SCH ×2 (10:00→22:00)
[2020-08-02] MEDS: amLODIPine BESYLATE 5 MG TAB PO SCH (10:00)
[2020-08-02] MEDS: AMIODARONE HCL 200 MG TAB PO SCH (10:00)
[2020-08-02] MEDS: PANTOPRAZOLE 40 MG TAB PO SCH ×2 (10:00→22:00)
[2020-08-02] MEDS: DexAMETHasone SOD PHOS 10MG/1ML VIAL INJ IV SCH (10:04)
[2020-08-02] MEDS: ZINC SULFATE 220mg CAP or TAB PO SCH (10:05)
[2020-08-02] MEDS: LINEZOLID 600MG/300ML 300 ML IV SCH ×2 (10:05→22:23)
[2020-08-02] MEDS: ASCORBIC ACID 500 MG TAB PO SCH ×2 (10:06→22:24)
[2020-08-02] MEDS: FAMOTIDINE 20 MG TAB PO SCH ×2 (10:06→22:23)
[2020-08-02] MEDS: MIDAZOLAM DRIP 50 mg/50mL 50 ML IV SCH (10:07)
[2020-08-02 10:12] LABS: Eosinophils # (auto) 0 10 ^3/uL (0-0.8); Monocytes # (auto) 0.4 10 ^3/uL (0-1.3); Nucleated Red Blood Cells % 0.4 %; Platelet Count (auto) 646 10^3/uL (140-450); White Blood Cell 5.8 10^3/uL (4.4-10.8)
[2020-08-02 10:14] LABS: Basophils # (auto) 0.1 10 ^3/uL (0-0.2); Basophils % (auto) 0.9 % (0.0-2.0); Hematocrit 26.3 % (36.0-46.0); Hemoglobin 8.5 g/dL (12.2-16.2); Lymphocytes # (auto) 1.1 10 ^3/uL (0.4-5.4); Lymphocytes % (auto) 19.2 % (10.0-50.0); Mean Corpuscular Hemoglobin 26.7 pg (28.0-32.0); Mean Corpuscular Hgb Conc. 32.4 g/dL (32.0-36.0); Mean Corpuscular Volume 82.5 fL (80.0-100.0); Neutrophils # (auto) 4.3 10 ^3/uL (1.6-8.6); Neutrophils % (auto) 72.9 % (37.0-80.0); Red Blood Cells 3.18 10^6/uL (4.0-5.20)
[2020-08-02 10:15] LABS: Red Cell Distribution Width 22.5 % (11.8-14.3)
[2020-08-02 10:33] LABS: Albumin 1.5 g/dL (3.4-5.0); Calcium 8.1 mg/dL (8.5-10.1); Magnesium 2.4 mg/dL (1.6-2.6); Potassium 4.8 mmol/L (3.5-5.1)
[2020-08-02 10:39] LABS: BUN/Creatinine Ratio 27.3; Bilirubin, Total 0.3 mg/dL (0.2-1.0); Total Protein 6.9 g/dL (6.4-8.2)
[2020-08-02] MEDS ORDERED: LIDOCAINE 1% (LOCAL ANESTH.) PF 5ml SDV ID ONE (13:45)
[2020-08-02] MEDS: SODIUM CHLORIDE 0.9% 1,000 ML IV SCH ×2 (16:11→23:45)
[2020-08-02] MEDS: SODIUM CHLOR 0.9% PF (SALINE LOCK) 10ML VIAL/SYR IV SCH (22:23)
[2020-08-02] MEDS: ATORVASTATIN 20 MG TAB PO SCH (22:23)
[2020-08-02] MEDS: INSULIN LANTUS (GLARGINE) 1 /0.01ml (100units/ml) SC SCH (23:00)
[2020-08-03] VITALS (87 sets, daily range): BP systolic 94–120; BP diastolic 56–70
[2020-08-03] MEDS: SODIUM CHLORIDE 0.9% 1,000 ML IV SCH ×2 (01:00→13:08)
[2020-08-03] MEDS: ACCU-CHEK COMFORT CURVE STRIP VI SCH ×3 (06:00→18:19)
[2020-08-03] MEDS: PIPERACILLIN-TAZOB 3.375GM 100 ML IV SCH ×4 (06:00→18:16)
[2020-08-03] MEDS: InsuLIN REG 1unit/0.01ml Soln (100units/ml) SC SCH ×4 (06:00→18:19)
[2020-08-03 06:13] LABS: Basophils # (auto) 0 10 ^3/uL (0-0.2); Eosinophils # (auto) 0 10 ^3/uL (0-0.8); Monocytes # (auto) 0.5 10 ^3/uL (0-1.3); Neutrophils # (auto) 4.7 10 ^3/uL (1.6-8.6); Nucleated Red Blood Cells % 0.6 %
[2020-08-03 06:15] LABS: Basophils % (auto) 0.6 % (0.0-2.0); Eosinophils % (auto) 0.1 % (0.0-7.0); Hematocrit 23.4 % (36.0-46.0); Hemoglobin 7.6 g/dL (12.2-16.2); Lymphocytes % (auto) 15.4 % (10.0-50.0); Mean Corpuscular Hemoglobin 27.3 pg (28.0-32.0); Mean Corpuscular Hgb Conc. 32.6 g/dL (32.0-36.0); Monocytes % (auto) 8.2 % (0.0-12.0); Neutrophils % (auto) 75.7 % (37.0-80.0); Platelet Count (auto) 528 10^3/uL (140-450); Red Blood Cells 2.79 10^6/uL (4.0-5.20); White Blood Cell 6.2 10^3/uL (4.4-10.8)
[2020-08-03 06:26] LABS: Potassium 4.8 mmol/L (3.5-5.1)
[2020-08-03 06:27] LABS: Red Cell Distribution Width 22.1 % (11.8-14.3)
[2020-08-03 06:36] LABS: BUN/Creatinine Ratio 27.4; Calcium 7.5 mg/dL (8.5-10.1)
[2020-08-03] MEDS: LEVOTHYROXINE SODIUM 25 MCG TAB PO SCH (06:39)
[2020-08-03] MEDS: LEVOTHYROXINE SODIUM 112 MCG TAB PO SCH (06:39)
[2020-08-03] MEDS: DOCUSATE SOD 100 MG CAP PO SCH ×2 (10:00→22:00)
[2020-08-03] MEDS: PANTOPRAZOLE 40 MG TAB PO SCH ×2 (10:00→22:00)
[2020-08-03] MEDS: amLODIPine BESYLATE 5 MG TAB PO SCH (10:00)
[2020-08-03] MEDS: AMIODARONE HCL 200 MG TAB PO SCH (10:00)
[2020-08-03] MEDS: DexAMETHasone SOD PHOS 10MG/1ML VIAL INJ IV SCH (10:02)
[2020-08-03] MEDS: SODIUM CHLOR 0.9% PF (SALINE LOCK) 10ML VIAL/SYR IV SCH ×2 (10:02→22:00)
[2020-08-03] MEDS: ZINC SULFATE 220mg CAP or TAB PO SCH (10:02)
[2020-08-03] MEDS: FAMOTIDINE 20 MG TAB PO SCH ×2 (10:13→22:00)
[2020-08-03] MEDS: ASCORBIC ACID 500 MG TAB PO SCH ×2 (10:18→22:00)
[2020-08-03] MEDS: LINEZOLID 600MG/300ML 300 ML IV SCH ×2 (10:19→22:00)
[2020-08-03] MEDS: BUDESONIDE (INHALATION) 0.5 MG/2 ML NEB NEB SCH ×2 (11:07→18:15)
[2020-08-03] MEDS: MIDAZOLAM DRIP 50 mg/50mL 50 ML IV SCH (13:09)
[2020-08-03] MEDS: fentaNYL Drip 2500mCg/250mlNS 250 ML IV SCH (21:08)
[2020-08-03] MEDS: ATORVASTATIN 20 MG TAB PO SCH (22:00)
[2020-08-03] MEDS: INSULIN LANTUS (GLARGINE) 1 /0.01ml (100units/ml) SC SCH (22:00)
[2020-08-04] VITALS (92 sets, daily range): BP systolic 85–126; BP diastolic 56–72
[2020-08-04 05:06] LABS: Hemoglobin 7.9 g/dL (12.2-16.2)
[2020-08-04 05:08] LABS: Hematocrit 24.4 % (36.0-46.0); Mean Corpuscular Hemoglobin 26.7 pg (28.0-32.0); Mean Corpuscular Hgb Conc. 32.5 g/dL (32.0-36.0); Mean Corpuscular Volume 82.3 fL (80.0-100.0); Platelet Count (auto) 546 10^3/uL (140-450); Red Blood Cells 2.96 10^6/uL (4.0-5.20)
[2020-08-04 05:24] LABS: Potassium 4.3 mmol/L (3.5-5.1)
[2020-08-04 05:28] LABS: Calcium 7.4 mg/dL (8.5-10.1)
[2020-08-04] MEDS: ACCU-CHEK COMFORT CURVE STRIP VI SCH ×4 (06:00→16:45)
[2020-08-04] MEDS: InsuLIN REG 1unit/0.01ml Soln (100units/ml) SC SCH ×4 (06:00→16:44)
[2020-08-04] MEDS: PIPERACILLIN-TAZOB 3.375GM 100 ML IV SCH ×4 (06:00→17:40)
[2020-08-04 06:46] LABS: Red Cell Distribution Width 23.1 % (11.8-14.3)
[2020-08-04 06:49] LABS: Basophils % (manual) 0 (0.0-2.0); Blast Cells 0; Eosinophils % (manual) 0 (0-7); Promyelocytes % 0; Reactive Lymphocytes 0
[2020-08-04] MEDS: LEVOTHYROXINE SODIUM 25 MCG TAB PO SCH (07:01)
[2020-08-04] MEDS: LEVOTHYROXINE SODIUM 112 MCG TAB PO SCH (07:01)
[2020-08-04] MEDS: BUDESONIDE (INHALATION) 0.5 MG/2 ML NEB NEB SCH ×2 (07:30→10:09)
[2020-08-04 08:28] LABS: Band Neutrophils % (manual) 17; Lymphocytes % (manual) 11 (10.0-50.0); Metamyelocytes % 1; Monocytes % (manual) 5 (0-12); Myelocytes % 1
[2020-08-04] MEDS: DexAMETHasone SOD PHOS 10MG/1ML VIAL INJ IV SCH (08:37)
[2020-08-04] MEDS: SODIUM CHLORIDE 0.9% 1,000 ML IV SCH ×2 (08:37→15:36)
[2020-08-04] MEDS: LINEZOLID 600MG/300ML 300 ML IV SCH ×2 (08:37→21:45)
[2020-08-04] MEDS: SODIUM CHLOR 0.9% PF (SALINE LOCK) 10ML VIAL/SYR IV SCH ×2 (08:37→21:45)
[2020-08-04] MEDS: FAMOTIDINE 20 MG TAB PO SCH ×2 (08:38→21:45)
[2020-08-04] MEDS: PANTOPRAZOLE 40 MG TAB PO SCH ×2 (08:38→21:45)
[2020-08-04] MEDS: amLODIPine BESYLATE 5 MG TAB PO SCH (08:38)
[2020-08-04] MEDS: ZINC SULFATE 220mg CAP or TAB PO SCH (08:38)
[2020-08-04] MEDS: ASCORBIC ACID 500 MG TAB PO SCH ×2 (08:38→21:45)
[2020-08-04] MEDS: AMIODARONE HCL 200 MG TAB PO SCH (08:38)
[2020-08-04] MEDS: DOCUSATE ORAL LIQUID 100 MG/10 ML UD GT SCH ×2 (10:59→21:44)
[2020-08-04] MEDS: MIDAZOLAM DRIP 50 mg/50mL 50 ML IV SCH (12:24)
[2020-08-04] MEDS: fentaNYL Drip 2500mCg/250mlNS 250 ML IV SCH (14:21)
[2020-08-04] MEDS: INSULIN LANTUS (GLARGINE) 1 /0.01ml (100units/ml) SC SCH (21:45)
[2020-08-04] MEDS: ATORVASTATIN 20 MG TAB PO SCH (21:45)
[2020-08-05] VITALS (98 sets, daily range): BP systolic 84–113; BP diastolic 54–89
[2020-08-05] MEDS: SODIUM CHLORIDE 0.9% 1,000 ML IV SCH (01:45)
[2020-08-05] MEDS: MIDAZOLAM DRIP 50 mg/50mL 50 ML IV SCH ×4 (04:45→22:04)
[2020-08-05] MEDS: InsuLIN REG 1unit/0.01ml Soln (100units/ml) SC SCH ×4 (06:00→18:00)
[2020-08-05] MEDS: ACCU-CHEK COMFORT CURVE STRIP VI SCH ×4 (06:01→18:00)
[2020-08-05] MEDS: PIPERACILLIN-TAZOB 3.375GM 100 ML IV SCH ×4 (06:01→18:00)
[2020-08-05] MEDS: LEVOTHYROXINE SODIUM 25 MCG TAB PO SCH (06:10)
[2020-08-05] MEDS: LEVOTHYROXINE SODIUM 112 MCG TAB PO SCH (06:10)
[2020-08-05 06:35] LABS: Potassium 3.8 mmol/L (3.5-5.1)
[2020-08-05 06:40] LABS: BUN/Creatinine Ratio 28.4; Calcium 7.3 mg/dL (8.5-10.1)
[2020-08-05 06:43] LABS: White Blood Cell 11.7 10^3/uL (4.4-10.8)
[2020-08-05 06:45] LABS: Hematocrit 28.7 % (36.0-46.0); Mean Corpuscular Hemoglobin 26.5 pg (28.0-32.0); Mean Corpuscular Hgb Conc. 31.5 g/dL (32.0-36.0); Mean Corpuscular Volume 84.1 fL (80.0-100.0); Platelet Count (auto) 600 10^3/uL (140-450); Red Blood Cells 3.41 10^6/uL (4.0-5.20)
[2020-08-05 07:02] LABS: Basophils % (manual) 0 (0.0-2.0); Blast Cells 0; Eosinophils % (manual) 0 (0-7); Myelocytes % 0; Promyelocytes % 0; Reactive Lymphocytes 0
[2020-08-05] MEDS: BUDESONIDE (INHALATION) 0.5 MG/2 ML NEB NEB SCH ×2 (07:58→18:25)
[2020-08-05] MEDS: LINEZOLID 600MG/300ML 300 ML IV SCH ×2 (09:52→22:03)
[2020-08-05] MEDS: DexAMETHasone SOD PHOS 10MG/1ML VIAL INJ IV SCH (09:52)
[2020-08-05] MEDS: FAMOTIDINE 20 MG TAB PO SCH ×2 (09:53→22:04)
[2020-08-05] MEDS: ASCORBIC ACID 500 MG TAB PO SCH ×2 (09:53→22:04)
[2020-08-05] MEDS: SODIUM CHLOR 0.9% PF (SALINE LOCK) 10ML VIAL/SYR IV SCH ×2 (09:53→22:03)
[2020-08-05] MEDS: AMIODARONE HCL 200 MG TAB PO SCH (09:53)
[2020-08-05] MEDS: DOCUSATE ORAL LIQUID 100 MG/10 ML UD GT SCH ×2 (09:53→22:03)
[2020-08-05] MEDS: PANTOPRAZOLE 40 MG TAB PO SCH ×2 (09:53→22:04)
[2020-08-05] MEDS: ZINC SULFATE 220mg CAP or TAB PO SCH (09:53)
[2020-08-05 10:08] LABS: Band Neutrophils % (manual) 2; Lymphocytes % (manual) 7 (10.0-50.0); Metamyelocytes % 5; Monocytes % (manual) 6 (0-12)
[2020-08-05] MEDS ORDERED: SODIUM CHLORIDE 0.9% 1,000 ML IV SCH (11:45)
[2020-08-05] MEDS ORDERED: FUROSEMIDE 20 MG/2 ML VIAL IV ONE (13:45)
[2020-08-05] MEDS ORDERED: NOREPINEPHRINE 8 MG/250ML KIT 250 ML IV SCH (13:45)
[2020-08-05] MEDS: DEXTROSE (50%) 50ML SYRG IV PRN (18:01)
[2020-08-05] MEDS: ATORVASTATIN 20 MG TAB PO SCH (22:03)
[2020-08-05] MEDS: INSULIN LANTUS (GLARGINE) 1 /0.01ml (100units/ml) SC SCH (22:05)
[2020-08-06] VITALS (81 sets, daily range): BP systolic 86–111; BP diastolic 58–87
[2020-08-06] MEDS: PIPERACILLIN-TAZOB 3.375GM 100 ML IV SCH ×5 (05:59→23:30)
[2020-08-06] MEDS: InsuLIN REG 1unit/0.01ml Soln (100units/ml) SC SCH ×5 (05:59→23:28)
[2020-08-06] MEDS: DEXTROSE (50%) 50ML SYRG IV PRN (06:00)
[2020-08-06] MEDS: ACCU-CHEK COMFORT CURVE STRIP VI SCH ×5 (06:00→23:28)
[2020-08-06] MEDS: LEVOTHYROXINE SODIUM 25 MCG TAB PO SCH (06:00)
[2020-08-06] MEDS: LEVOTHYROXINE SODIUM 112 MCG TAB PO SCH (06:00)
[2020-08-06] MEDS: MIDAZOLAM DRIP 50 mg/50mL 50 ML IV SCH ×2 (06:47→15:57)
[2020-08-06] MEDS: BUDESONIDE (INHALATION) 0.5 MG/2 ML NEB NEB SCH ×2 (06:50→18:29)
[2020-08-06 09:21] LABS: Hemoglobin 8.5 g/dL (12.2-16.2)
[2020-08-06 09:23] LABS: Hematocrit 27.3 % (36.0-46.0); Mean Corpuscular Hgb Conc. 31.3 g/dL (32.0-36.0); Mean Corpuscular Volume 83.1 fL (80.0-100.0); Platelet Count (auto) 473 10^3/uL (140-450); Red Blood Cells 3.28 10^6/uL (4.0-5.20); White Blood Cell 11.5 10^3/uL (4.4-10.8)
[2020-08-06 09:26] LABS: Red Cell Distribution Width 22.5 % (11.8-14.3)
[2020-08-06 09:27] LABS: Basophils % (manual) 0 (0.0-2.0); Blast Cells 0; Eosinophils % (manual) 0 (0-7); Myelocytes % 0; Promyelocytes % 0; Reactive Lymphocytes 0
[2020-08-06 09:36] LABS: Potassium 3.6 mmol/L (3.5-5.1)
[2020-08-06] MEDS: ZINC SULFATE 220mg CAP or TAB PO SCH (09:41)
[2020-08-06] MEDS: AMIODARONE HCL 200 MG TAB PO SCH (09:41)
[2020-08-06] MEDS: PANTOPRAZOLE 40 MG TAB PO SCH ×2 (09:41→21:40)
[2020-08-06] MEDS: FAMOTIDINE 20 MG TAB PO SCH ×2 (09:41→21:40)
[2020-08-06] MEDS: SODIUM CHLOR 0.9% PF (SALINE LOCK) 10ML VIAL/SYR IV SCH ×2 (09:42→21:41)
[2020-08-06] MEDS: ASCORBIC ACID 500 MG TAB PO SCH ×2 (09:42→21:40)
[2020-08-06] MEDS: DexAMETHasone SOD PHOS 10MG/1ML VIAL INJ IV SCH (09:42)
[2020-08-06 09:49] LABS: Albumin 1.2 g/dL (3.4-5.0); BUN/Creatinine Ratio 27.1; Bilirubin, Total 0.2 mg/dL (0.2-1.0); Calcium 7.9 mg/dL (8.5-10.1); Total Protein 6.4 g/dL (6.4-8.2)
[2020-08-06] MEDS: LINEZOLID 600MG/300ML 300 ML IV SCH ×2 (10:00→21:39)
[2020-08-06] MEDS: DOCUSATE ORAL LIQUID 100 MG/10 ML UD GT SCH ×2 (10:42→22:02)
[2020-08-06 12:14] LABS: Band Neutrophils % (manual) 7; Lymphocytes % (manual) 12 (10.0-50.0); Metamyelocytes % 1; Monocytes % (manual) 5 (0-12)
[2020-08-06] MEDS: Jevity 1.2 Cal/Fiber 1 Liter GT SCH (15:00)
[2020-08-06] MEDS: ATORVASTATIN 20 MG TAB PO SCH (21:40)
[2020-08-06] MEDS: INSULIN LANTUS (GLARGINE) 1 /0.01ml (100units/ml) SC SCH (21:58)
[2020-08-07] VITALS (61 sets, daily range): BP systolic 81–110; BP diastolic 54–82
[2020-08-07] MEDS: PIPERACILLIN-TAZOB 3.375GM 100 ML IV SCH ×3 (05:20→17:51)
[2020-08-07] MEDS: InsuLIN REG 1unit/0.01ml Soln (100units/ml) SC SCH ×3 (05:20→19:38)
[2020-08-07] MEDS: ACCU-CHEK COMFORT CURVE STRIP VI SCH ×3 (05:21→18:00)
[2020-08-07 05:22] LABS: Potassium 3.9 mmol/L (3.5-5.1)
[2020-08-07] MEDS: LEVOTHYROXINE SODIUM 25 MCG TAB PO SCH (05:22)
[2020-08-07] MEDS: LEVOTHYROXINE SODIUM 112 MCG TAB PO SCH (05:30)
[2020-08-07 05:31] LABS: Albumin 1.1 g/dL (3.4-5.0); BUN/Creatinine Ratio 26.3; Basophils # (auto) 0 10 ^3/uL (0-0.2); Basophils % (auto) 0.2 % (0.0-2.0); Bilirubin, Total 0.2 mg/dL (0.2-1.0); Calcium 7.5 mg/dL (8.5-10.1); Eosinophils # (auto) 0.1 10 ^3/uL (0-0.8); Eosinophils % (auto) 0.9 % (0.0-7.0); Hematocrit 26.9 % (36.0-46.0); Hemoglobin 8.4 g/dL (12.2-16.2); Lymphocytes # (auto) 0.8 10 ^3/uL (0.4-5.4); Lymphocytes % (auto) 6.9 % (10.0-50.0); Mean Corpuscular Hemoglobin 26.2 pg (28.0-32.0); Mean Corpuscular Hgb Conc. 31.3 g/dL (32.0-36.0); Mean Corpuscular Volume 83.8 fL (80.0-100.0); Monocytes # (auto) 0.3 10 ^3/uL (0-1.3); Monocytes % (auto) 2.2 % (0.0-12.0); Neutrophils # (auto) 10.6 10 ^3/uL (1.6-8.6); Neutrophils % (auto) 89.8 % (37.0-80.0); Nucleated Red Blood Cells % 0.1 %; Platelet Count (auto) 410 10^3/uL (140-450); Red Blood Cells 3.21 10^6/uL (4.0-5.20); Total Protein 6.1 g/dL (6.4-8.2); White Blood Cell 11.8 10^3/uL (4.4-10.8)
[2020-08-07] MEDS: MIDAZOLAM DRIP 50 mg/50mL 50 ML IV SCH ×2 (07:22→16:18)
[2020-08-07] MEDS: BUDESONIDE (INHALATION) 0.5 MG/2 ML NEB NEB SCH ×2 (09:06→19:09)
[2020-08-07] MEDS: DexAMETHasone SOD PHOS 10MG/1ML VIAL INJ IV SCH (10:02)
[2020-08-07] MEDS: SODIUM CHLOR 0.9% PF (SALINE LOCK) 10ML VIAL/SYR IV SCH ×2 (10:02→21:10)
[2020-08-07] MEDS: ZINC SULFATE 220mg CAP or TAB PO SCH (10:02)
[2020-08-07] MEDS: ASCORBIC ACID 500 MG TAB PO SCH ×2 (10:03→21:11)
[2020-08-07] MEDS: PANTOPRAZOLE 40 MG TAB PO SCH ×2 (10:03→21:11)
[2020-08-07] MEDS: FAMOTIDINE 20 MG TAB PO SCH ×2 (10:03→21:11)
[2020-08-07] MEDS: AMIODARONE HCL 200 MG TAB PO SCH (10:03)
[2020-08-07] MEDS: DOCUSATE ORAL LIQUID 100 MG/10 ML UD GT SCH ×2 (10:10→21:10)
[2020-08-07] MEDS: LINEZOLID 600MG/300ML 300 ML IV SCH ×2 (10:10→21:10)
[2020-08-07] MEDS: Jevity 1.2 Cal/Fiber 1 Liter GT SCH (15:00)
[2020-08-07] MEDS: INSULIN LANTUS (GLARGINE) 1 /0.01ml (100units/ml) SC SCH (21:11)
[2020-08-07] MEDS: ATORVASTATIN 20 MG TAB PO SCH (21:11)
[2020-08-08] VITALS (39 sets, daily range): BP systolic 91–152; BP diastolic 61–91
[2020-08-08] MEDS: PIPERACILLIN-TAZOB 3.375GM 100 ML IV SCH ×5 (05:16→23:30)
[2020-08-08] MEDS: InsuLIN REG 1unit/0.01ml Soln (100units/ml) SC SCH ×4 (05:30→18:27)
[2020-08-08] MEDS: ACCU-CHEK COMFORT CURVE STRIP VI SCH ×4 (05:31→17:55)
[2020-08-08] MEDS: LEVOTHYROXINE SODIUM 25 MCG TAB PO SCH (05:31)
[2020-08-08] MEDS: LEVOTHYROXINE SODIUM 112 MCG TAB PO SCH (05:44)
[2020-08-08] MEDS: BUDESONIDE (INHALATION) 0.5 MG/2 ML NEB NEB SCH ×2 (06:15→19:00)
[2020-08-08] MEDS: DOCUSATE ORAL LIQUID 100 MG/10 ML UD GT SCH ×2 (10:00→21:00)
[2020-08-08] MEDS: DexAMETHasone SOD PHOS 10MG/1ML VIAL INJ IV SCH (10:49)
[2020-08-08] MEDS: LINEZOLID 600MG/300ML 300 ML IV SCH ×2 (10:49→21:00)
[2020-08-08] MEDS: SODIUM CHLOR 0.9% PF (SALINE LOCK) 10ML VIAL/SYR IV SCH ×2 (10:49→21:00)
[2020-08-08] MEDS: AMIODARONE HCL 200 MG TAB PO SCH (10:50)
[2020-08-08] MEDS: FAMOTIDINE 20 MG TAB PO SCH ×2 (10:50→21:00)
[2020-08-08] MEDS: PANTOPRAZOLE 40 MG TAB PO SCH ×2 (10:50→21:00)
[2020-08-08] MEDS: ZINC SULFATE 220mg CAP or TAB PO SCH (10:50)
[2020-08-08] MEDS: ASCORBIC ACID 500 MG TAB PO SCH ×2 (10:51→21:00)
[2020-08-08] MEDS: MIDAZOLAM DRIP 50 mg/50mL 50 ML IV SCH ×2 (13:02→18:44)
[2020-08-08] MEDS: Jevity 1.2 Cal/Fiber 1 Liter GT SCH (15:00)
[2020-08-08] MEDS: ERGOCALCIFEROL 50,000 UNIT(1.25MG) CAP PO SCH (20:00)
[2020-08-08] MEDS: ATORVASTATIN 20 MG TAB PO SCH (21:00)
[2020-08-08] MEDS: INSULIN LANTUS (GLARGINE) 1 /0.01ml (100units/ml) SC SCH (21:00)
[2020-08-08] MEDS: MICONAZOLE NITRATE 2 % VAGINAL CREAM 45 GM PV SCH (21:00)
[2020-08-09] VITALS (51 sets, daily range): BP systolic 76–123; BP diastolic 60–88
[2020-08-09] MEDS: LEVOTHYROXINE SODIUM 112 MCG TAB PO SCH (05:17)
[2020-08-09] MEDS: LEVOTHYROXINE SODIUM 25 MCG TAB PO SCH (05:17)
[2020-08-09] MEDS: PIPERACILLIN-TAZOB 3.375GM 100 ML IV SCH ×4 (05:17→23:37)
[2020-08-09 05:19] LABS: Potassium 3.5 mmol/L (3.5-5.1)
[2020-08-09] MEDS: InsuLIN REG 1unit/0.01ml Soln (100units/ml) SC SCH ×4 (05:22→18:00)
[2020-08-09 05:29] LABS: BUN/Creatinine Ratio 26.9; Calcium 7.8 mg/dL (8.5-10.1)
[2020-08-09] MEDS: ACCU-CHEK COMFORT CURVE STRIP VI SCH ×4 (05:29→18:00)
[2020-08-09] MEDS: BUDESONIDE (INHALATION) 0.5 MG/2 ML NEB NEB SCH ×2 (06:30→22:30)
[2020-08-09] MEDS: DOCUSATE ORAL LIQUID 100 MG/10 ML UD GT SCH ×2 (10:00→21:19)
[2020-08-09] MEDS: DexAMETHasone SOD PHOS 10MG/1ML VIAL INJ IV SCH (10:22)
[2020-08-09] MEDS: SODIUM CHLOR 0.9% PF (SALINE LOCK) 10ML VIAL/SYR IV SCH ×2 (10:23→21:19)
[2020-08-09] MEDS: LINEZOLID 600MG/300ML 300 ML IV SCH ×2 (10:24→21:20)
[2020-08-09] MEDS: ZINC SULFATE 220mg CAP or TAB PO SCH (10:24)
[2020-08-09] MEDS: FAMOTIDINE 20 MG TAB PO SCH ×2 (10:25→21:21)
[2020-08-09] MEDS: AMIODARONE HCL 200 MG TAB PO SCH (10:25)
[2020-08-09] MEDS: ASCORBIC ACID 500 MG TAB PO SCH ×2 (10:26→21:21)
[2020-08-09] MEDS: PANTOPRAZOLE 40 MG TAB PO SCH ×2 (10:26→21:21)
[2020-08-09] MEDS: MIDAZOLAM DRIP 50 mg/50mL 50 ML IV SCH ×4 (10:30→23:21)
[2020-08-09] MEDS: Jevity 1.2 Cal/Fiber 1 Liter GT SCH (15:00)
[2020-08-09] MEDS: fentaNYL Drip 2500mCg/250mlNS 250 ML IV SCH (17:19)
[2020-08-09] MEDS: INSULIN LANTUS (GLARGINE) 1 /0.01ml (100units/ml) SC SCH (21:21)
[2020-08-09] MEDS: ATORVASTATIN 20 MG TAB PO SCH (21:21)
[2020-08-09] MEDS: MICONAZOLE NITRATE 2 % VAGINAL CREAM 45 GM PV SCH (21:21)
[2020-08-10] VITALS (58 sets, daily range): BP systolic 73–165; BP diastolic 51–79
[2020-08-10] MEDS: MIDAZOLAM DRIP 50 mg/50mL 50 ML IV SCH ×3 (05:13→22:13)
[2020-08-10] MEDS: PIPERACILLIN-TAZOB 3.375GM 100 ML IV SCH ×4 (05:14→23:48)
[2020-08-10] MEDS: InsuLIN REG 1unit/0.01ml Soln (100units/ml) SC SCH ×5 (05:43→23:48)
[2020-08-10] MEDS: ACCU-CHEK COMFORT CURVE STRIP VI SCH ×5 (05:44→23:49)
[2020-08-10 06:08] LABS: Potassium 3.7 mmol/L (3.5-5.1)
[2020-08-10] MEDS: LEVOTHYROXINE SODIUM 112 MCG TAB PO SCH (06:10)
[2020-08-10] MEDS: LEVOTHYROXINE SODIUM 25 MCG TAB PO SCH (06:11)
[2020-08-10 06:14] LABS: BUN/Creatinine Ratio 25.1; Basophils # (auto) 0 10 ^3/uL (0-0.2); Basophils % (auto) 0.3 % (0.0-2.0); Calcium 7.6 mg/dL (8.5-10.1); Eosinophils # (auto) 0 10 ^3/uL (0-0.8); Hematocrit 45.7 % (36.0-46.0); Hemoglobin 14.6 g/dL (12.2-16.2); Lymphocytes # (auto) 0.4 10 ^3/uL (0.4-5.4); Lymphocytes % (auto) 5.5 % (10.0-50.0); Mean Corpuscular Hemoglobin 26.4 pg (28.0-32.0); Mean Corpuscular Hgb Conc. 31.9 g/dL (32.0-36.0); Mean Corpuscular Volume 82.9 fL (80.0-100.0); Monocytes # (auto) 0.1 10 ^3/uL (0-1.3); Monocytes % (auto) 1.9 % (0.0-12.0); Neutrophils % (auto) 92.3 % (37.0-80.0); Nucleated Red Blood Cells % 0.6 %; Platelet Count (auto) 135 10^3/uL (140-450); Red Blood Cells 5.52 10^6/uL (4.0-5.20); Red Cell Distribution Width 22.2 % (11.8-14.3); White Blood Cell 7.6 10^3/uL (4.4-10.8)
[2020-08-10] MEDS: BUDESONIDE (INHALATION) 0.5 MG/2 ML NEB NEB SCH ×2 (10:00→22:22)
[2020-08-10] MEDS: DOCUSATE ORAL LIQUID 100 MG/10 ML UD GT SCH ×2 (10:00→21:20)
[2020-08-10] MEDS: SODIUM CHLOR 0.9% PF (SALINE LOCK) 10ML VIAL/SYR IV SCH ×2 (11:21→21:20)
[2020-08-10] MEDS: ZINC SULFATE 220mg CAP or TAB PO SCH (11:21)
[2020-08-10] MEDS: LINEZOLID 600MG/300ML 300 ML IV SCH ×2 (11:21→21:20)
[2020-08-10] MEDS: DexAMETHasone SOD PHOS 10MG/1ML VIAL INJ IV SCH (11:21)
[2020-08-10] MEDS: AMIODARONE HCL 200 MG TAB PO SCH (11:22)
[2020-08-10] MEDS: FAMOTIDINE 20 MG TAB PO SCH ×2 (11:22→21:21)
[2020-08-10] MEDS: PANTOPRAZOLE 40 MG TAB PO SCH ×2 (11:22→21:21)
[2020-08-10] MEDS: ASCORBIC ACID 500 MG TAB PO SCH ×2 (11:23→21:21)
[2020-08-10] MEDS: fentaNYL Drip 2500mCg/250mlNS 250 ML IV SCH (16:30)
[2020-08-10] MEDS: Jevity 1.2 Cal/Fiber 1 Liter GT SCH (16:34)
[2020-08-10] MEDS ORDERED: SODIUM BICARBONATE 8.4 % INJ 50ML VIAL IV ONE (16:45)
[2020-08-10] MEDS: DOPamine 1600MCG/ML D5W 250 ML IV SCH (17:43)
[2020-08-10] MEDS: SODIUM BICARBONATE 50ML VIAL 150 ML in D5W 5% 1,000 ML IV SCH (19:52)
[2020-08-10] MEDS: MICONAZOLE NITRATE 2 % VAGINAL CREAM 45 GM PV SCH (21:21)
[2020-08-10] MEDS: INSULIN LANTUS (GLARGINE) 1 /0.01ml (100units/ml) SC SCH (21:21)
[2020-08-10] MEDS: ATORVASTATIN 20 MG TAB PO SCH (21:21)
[2020-08-11] VITALS (65 sets, daily range): BP systolic 80–123; BP diastolic 64–88
[2020-08-11] MEDS: SODIUM BICARBONATE 50ML VIAL 150 ML in D5W 5% 1,000 ML IV SCH (04:15)
[2020-08-11] MEDS: fentaNYL Drip 2500mCg/250mlNS 250 ML IV SCH ×2 (05:13→17:59)
[2020-08-11] MEDS: InsuLIN REG 1unit/0.01ml Soln (100units/ml) SC SCH ×4 (05:14→23:38)
[2020-08-11] MEDS: PIPERACILLIN-TAZOB 3.375GM 100 ML IV SCH ×3 (05:15→18:05)
[2020-08-11] MEDS: ACCU-CHEK COMFORT CURVE STRIP VI SCH ×4 (05:15→23:43)
[2020-08-11] MEDS: MIDAZOLAM DRIP 50 mg/50mL 50 ML IV SCH ×3 (05:16→18:00)
[2020-08-11 06:00] LABS: Basophils # (auto) 0 10 ^3/uL (0-0.2); Basophils % (auto) 0.2 % (0.0-2.0); Eosinophils # (auto) 0 10 ^3/uL (0-0.8); Hemoglobin 8.8 g/dL (12.2-16.2); Lymphocytes # (auto) 0.5 10 ^3/uL (0.4-5.4); Lymphocytes % (auto) 5.3 % (10.0-50.0); Mean Corpuscular Hemoglobin 27.3 pg (28.0-32.0); Mean Corpuscular Hgb Conc. 31.3 g/dL (32.0-36.0); Mean Corpuscular Volume 87.1 fL (80.0-100.0); Monocytes # (auto) 0.2 10 ^3/uL (0-1.3); Monocytes % (auto) 2.4 % (0.0-12.0); Neutrophils # (auto) 7.8 10 ^3/uL (1.6-8.6); Neutrophils % (auto) 92.1 % (37.0-80.0); Nucleated Red Blood Cells % 0.2 %; Platelet Count (auto) 128 10^3/uL (140-450); Red Blood Cells 3.22 10^6/uL (4.0-5.20); White Blood Cell 8.5 10^3/uL (4.4-10.8)
[2020-08-11 06:37] LABS: Red Cell Distribution Width 22.5 % (11.8-14.3)
[2020-08-11] MEDS: BUDESONIDE (INHALATION) 0.5 MG/2 ML NEB NEB SCH ×2 (07:15→21:09)
[2020-08-11] MEDS: LEVOTHYROXINE SODIUM 25 MCG TAB PO SCH ×2 (07:24→21:42)
[2020-08-11] MEDS: LEVOTHYROXINE SODIUM 112 MCG TAB PO SCH ×2 (07:24→21:41)
[2020-08-11] MEDS: PANTOPRAZOLE 40 MG TAB PO SCH ×2 (09:40→21:13)
[2020-08-11] MEDS: ASCORBIC ACID 500 MG TAB PO SCH ×2 (09:40→21:13)
[2020-08-11] MEDS: LINEZOLID 600MG/300ML 300 ML IV SCH (09:40)
[2020-08-11] MEDS: ZINC SULFATE 220mg CAP or TAB PO SCH (09:40)
[2020-08-11] MEDS: DOCUSATE ORAL LIQUID 100 MG/10 ML UD GT SCH ×2 (09:40→21:13)
[2020-08-11] MEDS: FAMOTIDINE 20 MG TAB PO SCH ×2 (09:40→21:13)
[2020-08-11] MEDS: SODIUM CHLOR 0.9% PF (SALINE LOCK) 10ML VIAL/SYR IV SCH ×2 (09:40→21:13)
[2020-08-11] MEDS: AMIODARONE HCL 200 MG TAB PO SCH (09:40)
[2020-08-11] MEDS: DexAMETHasone SOD PHOS 10MG/1ML VIAL INJ IV SCH (09:40)
[2020-08-11 09:41] LABS: Potassium 3.5 mmol/L (3.5-5.1)
[2020-08-11 09:47] LABS: BUN/Creatinine Ratio 21.7; Calcium 7.8 mg/dL (8.5-10.1)
[2020-08-11] MEDS: DOPamine 1600MCG/ML D5W 250 ML IV SCH (16:41)
[2020-08-11] MEDS: MICONAZOLE NITRATE 2 % VAGINAL CREAM 45 GM PV SCH (21:13)
[2020-08-11] MEDS: ATORVASTATIN 20 MG TAB PO SCH (21:13)
[2020-08-11] MEDS: INSULIN LANTUS (GLARGINE) 1 /0.01ml (100units/ml) SC SCH (21:14)
[2020-08-11] MEDS ORDERED: METOCLOPRAMIDE HCL 5MG/ml INJ 2ml VIAL ONE (21:41)
[2020-08-12] VITALS (33 sets, daily range): BP systolic 93–139; BP diastolic 56–97
[2020-08-12] MEDS: MIDAZOLAM DRIP 50 mg/50mL 50 ML IV SCH ×3 (01:18→13:45)
[2020-08-12] MEDS: ACCU-CHEK COMFORT CURVE STRIP VI SCH ×3 (05:21→18:00)
[2020-08-12] MEDS: InsuLIN REG 1unit/0.01ml Soln (100units/ml) SC SCH ×3 (05:21→18:00)
[2020-08-12] MEDS: BUDESONIDE (INHALATION) 0.5 MG/2 ML NEB NEB SCH (06:15)
[2020-08-12] MEDS: SODIUM CHLOR 0.9% PF (SALINE LOCK) 10ML VIAL/SYR IV SCH (10:42)
[2020-08-12] MEDS: DexAMETHasone SOD PHOS 10MG/1ML VIAL INJ IV SCH (10:42)
[2020-08-12] MEDS: DOCUSATE ORAL LIQUID 100 MG/10 ML UD GT SCH (10:42)
[2020-08-12] MEDS: ZINC SULFATE 220mg CAP or TAB PO SCH (10:42)
[2020-08-12] MEDS: PANTOPRAZOLE 40 MG TAB PO SCH (10:43)
[2020-08-12] MEDS: ASCORBIC ACID 500 MG TAB PO SCH (10:43)
[2020-08-12] MEDS: AMIODARONE HCL 200 MG TAB PO SCH (10:43)
[2020-08-12] MEDS: FAMOTIDINE 20 MG TAB PO SCH (10:43)
[2020-08-12] MEDS: MORPHINE SULF INJ 2 MG/ML SYRINGE 1ML IV PRN (18:59)
[2020-08-12] MEDS ORDERED: MORPHINE SULF INJ 2 MG/ML SYRINGE 1ML IV PRN (19:15)
== END 2020-08-12 19:55 | DRG 870 ==
LOC: ER 08:29 → TELE 08:30 → TELE-CENTR 07-18 03:07 → ICU WEST 08-01 11:25
PROVIDERS: ADMIT Nurse Practitioner Acute Care; ATTEND Internal Medicine
PROC: 30233N1 Transfusion of Nonautologous Red Blood Cells into Peripheral Vein, Percutaneous Approach (ICD-10-PCS; principal; 2020-07-25)
PROC: 5A1955Z Respiratory Ventilation, Greater than 96 Consecutive Hours (ICD-10-PCS; 2020-07-30)
PROC: 0BH17EZ Insertion of Endotracheal Airway into Trachea, Via Natural or Artificial Opening (ICD-10-PCS; 2020-07-30)
PROC: 30233N1 Transfusion of Nonautologous Red Blood Cells into Peripheral Vein, Percutaneous Approach (ICD-10-PCS; 2020-07-31)
DX: A41.9 Sepsis, unspecified organism (principal); I50.33 Acute on chronic diastolic (congestive) heart failure; J96.00 Acute respiratory failure, unspecified whether with hypoxia or hypercapnia; J12.82 Pneumonia due to coronavirus disease 2019; U07.1 COVID-19; C64.9 Malignant neoplasm of unspecified kidney, except renal pelvis; E44.0 Moderate protein-calorie malnutrition; D68.59 Other primary thrombophilia; C64.1 Malignant neoplasm of right kidney, except renal pelvis; N39.0 Urinary tract infection, site not specified; J98.11 Atelectasis; C78.00 Secondary malignant neoplasm of unspecified lung; I13.0 Hypertensive heart and chronic kidney disease with heart failure and stage 1 through stage 4 chronic kidney disease, or unspecified chronic kidney disease; R31.0 Gross hematuria; I48.91 Unspecified atrial fibrillation; T46.0X5A Adverse effect of cardiac-stimulant glycosides and drugs of similar action, initial encounter; Y95 Nosocomial condition; N18.32 Chronic kidney disease, stage 3b; E66.9 Obesity, unspecified; D64.9 Anemia, unspecified; E03.9 Hypothyroidism, unspecified; E78.5 Hyperlipidemia, unspecified; B35.1 Tinea unguium; I27.20 Pulmonary hypertension, unspecified; E11.65 Type 2 diabetes mellitus with hyperglycemia; Z79.899 Other long term (current) drug therapy; Z79.891 Long term (current) use of opiate analgesic; Z79.01 Long term (current) use of anticoagulants; Z79.4 Long term (current) use of insulin
CPT/HCPCS: 36415; 36569; 36600; 71045; 71250; 76775; 80048; 80053; 80162; 81001; 82270; 82728; 82805; 82962; 83605; 83615; 83735; 83880; 84100; 84484; 85007; 85014; 85018; 85025; 85027; 85610; 85730; 86141; 86850; 86900; 86901; 86920; 87040; 87070; 87077; 87081; 87205; 87426; 87804; 94002; 94003; 94640; 97110; 97116; 97163; 97530; G0378; J0330; J0696; J1100; J1815; J2250; J2543; J7060; P9047